=== PATIENT | female | born 1995 | race Caucasian/White ===

== ENCOUNTER 2016-05-31 09:40 | Day surgery (SDC) | payer BC, OTHER ==
[2016-05-30 15:12] VITALS: BMI 17.6
[~2016-05-31 09:40] MED LIST: DEXAMETHASONE SOD PHOSPHATE 10 MG/ML 1 ML VIAL IV ONE; HYDROmorphone 1 MG/ML 1 ML SYRINGE IVP PRN; LACTATED RINGERS 1,000 ML IV SCH; MIDAZOLAM 2 MG/2 ML VIAL IV PRN; ONDANSETRON 4 MG/2 ML VIAL IVP ONE; SCOPOLAMINE 1.5MG/72HR PATCH TRANSDERM ONE
[2016-05-31 10:30] VITALS: TEMP 98.2
[2016-05-31] MEDS ORDERED: LIDOCAINE 1% 20 ML VIAL (10MG/ML) FOR IV START INTRADERMA ONE (10:43)
--- NOTE | 2016-05-31 11:37 | P.GSHP ---
History of Present Illness H&P Date: 05/31/16 Chief Complaint: Lymphoma Patient here today for Port-A-Cath insertion. The patient has a recent diagnosis of Hodgkin's lymphoma. She has not had a port in the past. She started her initial treatment with a PICC line. Past Medical History Past Medical History: Cancer, Pneumonia Additional Past Medical History / Comment(s): HODGKINS LYMPHOMA (DX-04/2016), HOSPITALIZED FOR PNEUMONIA AND PERICARDIAL EFFUSION. , STATES SHE RECEIVED 1ST CHEMO 05/22/16. History of Any Multi-Drug Resistant Organisms: None Reported Past Surgical History: No Surgical Hx Reported Additional Past Surgical History / Comment(s): LEFT AXILLARY NODE BX, PERICARDIOCENTESIS, BONE MARROW BX (05/17/16)., PICC LINE (05/21/16 AND NOW REMOVED) Past Anesthesia/Blood Transfusion Reactions: Motion Sickness, Postoperative Nausea & Vomiting (PONV) Past Psychological History: No Psychological Hx Reported Smoking Status: Never smoker Past Alcohol Use History: None Reported Past Drug Use History: None Reported - Past Family History Mother Family Medical History: No Reported History Additional Family Medical History / Comment(s): 2 grandparents with cancer Father Family Medical History: No Reported History Brother(s) Family Medical History: No Reported History Daughter(s) Family Medical History: No Reported History Son(s) Family Medical History: No Reported History Medications and Allergies Home Medications Medication Instructions Recorded Confirmed Type Allopurinol [Zyloprim] 300 mg PO DAILY 05/16/16 05/31/16 History Prochlorperazine [Compazine] 10 mg PO Q8H PRN 05/30/16 05/31/16 History Allergies Allergy/AdvReac Type Severity Reaction Status Date / Time No Known Allergies Allergy Verified 05/31/16 10:28 Surgical - Exam Vital Signs Temp Pulse Resp BP Pulse Ox 98.2 F 69 16 103/67 100 05/31/16 10:29 05/31/16 10:29 05/31/16 10:29 05/31/16 10:29 05/31/16 10:29 Physical exam: General: Well-developed, well-nourished HEENT: Normocephalic, sclerae nonicteric, adenopathy improved Abdomen: Nontender, nondistended Extremities: No edema Neuro: Alert and oriented Assessment and Plan (1) Hodgkins disease Narrative/Plan: Will proceed with Port-A-Cath placement today. The risks of bleeding, infection , catheter breakage, catheter malfunction, pneumothorax, DVT were discussed. She understands and wishes to proceed. Status: Acute
[2016-05-31] MEDS ORDERED: SODIUM CHLORIDE 0.9% 100 ML BAG ONE (12:56)
[2016-05-31] MEDS ORDERED: fentaNYL (PF) 50 MCG/ML 2 ML AMP ONE (12:56)
[2016-05-31] MEDS ORDERED: ceFAZolin 1,000 MG VIAL ONE (12:56)
[2016-05-31] MEDS ORDERED: MIDAZOLAM 2 MG/2 ML VIAL ONE (12:56)
[2016-05-31] MEDS ORDERED: PROPOFOL 10 MG/ML 20 ML VIAL IV ONE (12:56)
[2016-05-31] MEDS: ceFAZolin 2 GM in SODIUM CHLORIDE 0.9% 100 ML IVPB ONE ×2 (13:02→13:05)
[2016-05-31] MEDS ORDERED: LIDOCAINE 1% INJ 10MG/ML (20 ML MDV) SQ ONE ×2 (13:14)
[2016-05-31] MEDS ORDERED: NALOXONE 0.4 MG/ML 1 ML VIAL IV PRN (13:49)
--- NOTE | 2016-05-31 13:54 | FL ---
EXAMINATION TYPE: FL guidance operating room DATE OF EXAM: 05/31/2016 1:50 PM HISTORY: Flouroscopy time 1 minute and 38 seconds of fluoroscopy provided. IMPRESSION: 1. Fluoroscopy time.
[2016-05-31 14:10] VITALS: RESP 16
--- NOTE | 2016-05-31 14:19 | XR ---
EXAMINATION TYPE: XR chest 1V portable DATE OF EXAM: 05/31/2016 2:05 PM COMPARISON: NONE HISTORY: Post line attempt TECHNIQUE: Single frontal view of the chest is obtained. FINDINGS: Findings are suspicious for a less than 5% left apical pneumothorax. Mediastinum remains markedly wid ened with evidence of suspected mass or adenopathy. There is no focal air space opacity, pleural or pleural effusion seen. The cardiac silhouette size i s within normal limits. The osseous structures are intact. IMPRESSION: 1. Findings suspicious for less than 5% left apical pneumothorax.
[2016-05-31 14:51] VITALS: BP 96/62; PULSE 74
--- NOTE | 2016-05-31 15:14 | XR ---
EXAMINATION TYPE: XR chest 1V portable DATE OF EXAM: 05/31/2016 3:09 PM COMPARISON: 05/31/2016 HISTORY: Questionable left pneumothorax post line attempt TECHNIQUE: Single frontal view of the chest is obtained. FINDINGS: There is no focal air space opacity, pleural effusion, or pneumothorax seen. The cardiac silhouette size is within normal limits. The osseous structures are intact. Marked mediastinal wide taylor suggestive of adenopathy or mass. IMPRESSION: 1. No sizable pneumothorax.
--- NOTE | 2016-06-06 19:11 | P.PCN ---
Date of Procedure: 06/06/16 Procedure(s) Performed: PREOPERATIVE DIAGNOSIS: Lymphoma POSTOPERATIVE DIAGNOSIS: Lymphoma with occlusion proximal great vessels PROCEDURE: Attempted bilateral Port-A-Cath placement SURGEON: Suzy EBL: Minimal ANESTHESIA: Sedation COMPLICATIONS: Unable to place catheter OPERATIVE PROCEDURE: Patient was brought and placed on the operative table in the supine position. The patient was sedated per anesthesia that time. The chest and neck were prepped and draped in usual sterile fashion. The ultrasound probe was used to identify the location of the right internal jugular vein. The skin was localized with lidocaine. The luminal diameter of the right IJ was very small. I was able to cannulate however under ultrasound guidance of the wire would only advance 2-3 inches before meeting an obstruction. I then attempted the left IJ. Again the luminal diameter was quite small. This time I was able to advance the guidewire into the region of the superior vena cava but met resistance at that point. I decided to abort the procedure at that point. The patient will require PICC line or femoral catheter placement. This was discussed with oncologist. sterile dressings then applied. DISPOSITION: Stable to recovery room
== END 2016-05-31 15:25 | disposition home or self-care (01) ==
LOC: OR 09:40
PROVIDERS: ATTEND Surgery
DX: C81.90 Hodgkin lymphoma, unspecified, unspecified site (principal); Z45.2 Encounter for adjustment and management of vascular access device; Z53.8 Procedure and treatment not carried out for other reasons; Z79.899 Other long term (current) drug therapy
CPT/HCPCS: 81025; 71010; 36561; 77001; 76937; J2250; J2405; J0690; J2001; J3010; J2704; 99152; 99153

== ENCOUNTER 2016-06-04 11:55 | Day surgery (SDC) | payer BC, OTHER ==
[2016-06-03 09:44] VITALS: BMI 17.6
[2016-06-04 12:55] VITALS: BP 105/59; PULSE 76; RESP 18; TEMP 98
[2016-06-04] MEDS ORDERED: LIDOCAINE 2% INJ 20 MG/ML SQ ONE ×2 (13:14→13:22)
[2016-06-04] MEDS ORDERED: IODIXANOL 320 MG/ML 100 ML IV ONE (13:28)
--- NOTE | 2016-06-05 15:21 | IR ---
EXAMINATION TYPE: IR venogram upper ext RT DATE OF EXAM: 06/04/2016 1:51 PM COMPARISON: NONE HISTORY: Failed central line placement request for PICC line placement. Patient with history of lymph katey and massive mediastinal adenopathy. The procedure was discussed with the patient. The risks, complications, benefits, and alternatives we re discussed and any questions were answered. Informed consent was obtained. The patient was placed s upine on the fluoroscopic table and prepped and draped in the usual sterile fashion. All elements of maximal barrier technique were utilized. Under ultrasound guidance, access into the left basilic vein and subsequently right basilic vein was achieved. Within both upper extremities the guidewire would not pass beyond the subclavian vein. Injection of contrast was performed which demon strated occlusion centrally with no contrast seen to spill into the central venous system. Case was d iscussed with referring physician and PICC line was deferred. The patient was stable throughout the p rocedure and remained stable upon discharge from Department of Radiology. IMPRESSION: A due to the massive mediastinal adenopathy guidewire could not cross the subclavian vein bilaterally . Venogram demonstrated no passage of contrast into the vena cava.
== END 2016-06-04 14:08 | disposition home or self-care (01) ==
LOC: CATHCVL 11:55
PROVIDERS: ATTEND Radiology Diagnostic Radiology
DX: C81.18 Nodular sclerosis Hodgkin lymphoma, lymph nodes of multiple sites (principal); R59.0 Localized enlarged lymph nodes; I87.2 Venous insufficiency (chronic) (peripheral); Z79.899 Other long term (current) drug therapy
CPT/HCPCS: 36569; 81025; J2001; Q9967; 76937; 77001

== ENCOUNTER → 2016-07-06 | Outpatient (CLI) | payer BC ==
--- NOTE | 2016-07-07 11:02 | PE ---
EXAMINATION TYPE: PET CT fusion skull to thigh DATE OF EXAM: 07/06/2016 12:19 PM COMPARISON: 05/25/2016 HISTORY: Lymphoma TECHNIQUE: Following the intravenous administration of 15.3 mCi of F-18 FDG, whole body images are p erformed from the skull base to the midthigh. Images are reviewed on the computer in the coronal, ax ial, and sagittal planes. Reconstructed rotating images are created on independent workstation and r eviewed on the computer. A localization and attenuation correction CT is performed in conjunction w ith the PET scan. DLP: 220.46 mGycm SCAN: Subsequent Scan Blood glucose: 84 mg/dL Average Mediastinum SUV: 1.0 Average Liver SUV: 1.3 FINDINGS: NECK: Multiple bilateral focal areas of increased uptake are present. These have diminished in numbe r over the interval. THORAX: Suspicious uptake not identified ABDOMEN AND PELVIS: Suspicious uptake not identified OSSEOUS STRUCTURES: There is increased signal throughout the osseous structures. Especially noted thr ough the sternoclavicular junction, vertebral bodies, sternum LOCALIZATION CT: Note is made of a small pericardial effusion. Superior mediastinal adenopathy appear s to be present which is not radiointensity PET/CT. Intense activity is through the pelvis and segmen tally within the femurs. COMPARISON: There is been significant improvement within the uptake from the prior examination. Appea rs to be radiotracer resolution of multiple lymph nodes within the neck mediastinum right axillary re gion. Note is made however of continued soft tissue density especially no through the superior medias tinum. However, abnormal uptake is not identified. IMPRESSION: 1. Significant improvement of uptake with multiple areas of diminished radiotracer accumulation withi n lymph node chains. 2. There is increasing uptake within osseous structures can be related to the patient's treatment. 3. Pericardial effusion
== END | disposition home or self-care (01) ==
LOC: RADPETMAIN 08:22
PROVIDERS: ATTEND Internal Medicine Hematology & Oncology
DX: C85.90 Non-Hodgkin lymphoma, unspecified, unspecified site (principal); I31.3 Pericardial effusion (noninflammatory)
CPT/HCPCS: 78815; A9552

== ENCOUNTER → 2016-09-10 | Outpatient (CLI) | payer BC ==
--- NOTE | 2016-09-11 10:48 | ECHOF ---
Referral Reason:C81.18 lymphoma Z68.18 chemo MEASUREMENTS -------- HEIGHT: 165.1 cm WEIGHT: 51.7 kg BP: RVIDd: 1.9 cm (< 3.3) IVSd: 0.8 cm (0.6 - 1.1) LVIDd: 4.5 cm (3.9 - 5.3) LVPWd: 0.7 cm (0.6 - 1.1) IVSs: 1.1 cm LVIDs: 3.2 cm LVPWs: 1.0 cm LA Diam: 1.8 cm (2.7 - 3.8) Ao Diam: 2.6 cm (2.0 - 3.7) AV Cusp: 1.6 cm (1.5 - 2.6) LA Diam: 2.3 cm (2.7 - 3.8) MV EXCURSION: 17.657 mm (> 18.000) MV EF SLOPE: 135 mm/s (70 - 150) EPSS: 0.6 cm MV E Justen: 0.87 m/s MV DecT: 240 ms MV A Justen: 0.46 m/s MV E/A Ratio: 1.87 RAP: 5.00 mmHg RVSP: 14.95 mmHg FINDINGS -------- Sinus rhythm. This was a technically good study. Left ventricular wall thickness is normal. Overall left ventricular systolic function is mild-moderately impaired with, an EF between 40 - 45 %. Inferior Hypokinesis The right ventricle is normal in size. The left atrial size is normal. The right atrial size is normal. The aortic valve is trileaflet, and appears structurally normal. No aortic stenosis or regurgitation. The mitral valve leaflets are mildly thickened. Mild mitral regurgitation is present. Mild tricuspid regurgitation present. There is no evidence of pulmonary hypertension. The right ventricular systolic pressure, as measured by Doppler, is 14.95mmHg. There is no pulmonic regurgitation present. There is a small, generalized pericardial effusion present. CONCLUSIONS -------- 1. Left ventricular wall thickness is normal. 2. Overall left ventricular systolic function is mild-moderately impaired with, an EF between 40 - 45 %. 3. Inferior Hypokinesis 4. The mitral valve leaflets are mildly thickened. 5. Mild mitral regurgitation is present. 6. Mild tricuspid regurgitation present. 7. There is no evidence of pulmonary hypertension. 8. The right ventricular systolic pressure, as measured by Doppler, is 14.95mmHg. 9. There is a small, generalized pericardial effusion present. GED PREPARATION TEACHER: Gisela Geronimo RDCS
== END | disposition home or self-care (01) ==
LOC: RADECHMAIN 13:43
PROVIDERS: ATTEND Internal Medicine Hematology & Oncology
DX: C85.90 Non-Hodgkin lymphoma, unspecified, unspecified site (principal); I08.1 Rheumatic disorders of both mitral and tricuspid valves; I31.3 Pericardial effusion (noninflammatory)
CPT/HCPCS: 93306; 94060; 94726; 94729

== ENCOUNTER → 2016-09-17 | Outpatient (CLI) | payer BC ==
--- NOTE | 2016-09-17 14:37 | NM ---
EXAMINATION TYPE: NM rest muga chemo DATE OF EXAM: 09/17/2016 2:13 PM COMPARISON: NONE HISTORY: Z79.88 exposure to chemo Following administration of 3ml PYP 25.6 mCi Tc 99m Sodium Pertechnete. Images minutes post injection . FINDINGS: There is good myocardial wall thickening. Ejection fraction 62.8% IMPRESSION: Normal right and left ventricular chamber sizes. Normal right and left ventricular segmental wall mot ion.
== END ==
LOC: RADNMMAIN 12:48
PROVIDERS: ATTEND Internal Medicine Hematology & Oncology
DX: C81.18 Nodular sclerosis Hodgkin lymphoma, lymph nodes of multiple sites (principal); Z03.89 Encounter for observation for other suspected diseases and conditions ruled out
CPT/HCPCS: 78472; A9560

== ENCOUNTER → 2016-12-28 | Outpatient (CLI) | payer BC, OTHER ==
--- NOTE | 2016-12-28 17:01 | PE ---
EXAMINATION TYPE: PET CT fusion skull to thigh DATE OF EXAM: 12/28/2016 COMPARISON: PET/CT July 06, 2016. Older PET/CT May 25, 2016 HISTORY: Lymphoma progress study initially diagnosed left axilla May 02, 2016 completed chemother apy November 07, 2016. TECHNIQUE: Following the intravenous administration of 12.82 mCi of F-18 FDG, whole body images are performed from the skull base to the midthigh. Images are reviewed on the computer in the coronal, a xial, and sagittal planes. Reconstructed rotating images are created on independent workstation and reviewed on the computer. A localization and attenuation correction CT is performed in conjunction with the PET scan. SCAN: Subsequent Scan FINDINGS: SKULL BASE AND NECK: Symmetric increase uptake at level of the tongue could reflect tonsillar hyperp lasia or inflammation. Uptake diffusely surrounding mandibular symphysis is of uncertain etiology. Sy mmetric uptake at level of vocal cords is felt to reflect product of phonation. There is some increas e uptake left paraspinal muscles in which inflammatory process cannot be excluded. No suspicious new hypermetabolic uptake is seen to suggest neoplasm. CHEST, MEDIASTINUM, AND HILAR REGION: No suspicious hypermetabolic uptake is seen to suggest new will opathy. There is persistent prominent right axillary lymph node measuring 1.7 x 1.0 cm on axial image 59 not significantly changed from prior without abnormal hypermetabolic uptake. There is prominent s oft tissue anterior superior mediastinum felt to reflect thymic rebound without abnormal hypermetabol ic uptake redemonstrated. ABDOMEN AND PELVIS: No suspicious hypermetabolic uptake in the abdomen or pelvis is seen. Nonspecific uptake in the pelvis along uterine margin is noted. OSSEOUS STRUCTURES: No suspicious uptake is identified currently. Diffuse uptake presumed posttreatme nt change from prior study is improved. OTHER CT: There is small pericardial effusion diminished in size from prior. Uterus is heterogeneous in appearance and prominent in size slightly retroverted in shape similar to prior. There is interval removal of right groin venous catheter. IMPRESSION: No evidence of suspicious hypermetabolic enlarged lymph nodes to suggest neoplastic recur rence on current study.
== END | disposition home or self-care (01) ==
LOC: RADPETMAIN 11:34
PROVIDERS: ATTEND Internal Medicine Hematology & Oncology
DX: C81.18 Nodular sclerosis Hodgkin lymphoma, lymph nodes of multiple sites (principal)
CPT/HCPCS: 78815; A9552

== ENCOUNTER → 2017-10-15 | Outpatient (CLI) | payer OTHER ==
--- NOTE | 2017-10-15 16:54 | XR ---
EXAMINATION TYPE: XR chest 2V DATE OF EXAM: 10/15/2017 COMPARISON: 05/31/2016 HISTORY: Chest pain TECHNIQUE: Frontal and lateral views of the chest are obtained. FINDINGS: Heart is normal. There is slight widening of the superior mediastinum consistent with mild adenopathy.. Lungs are clear. Diaphragm is normal. Bony thorax is intact. IMPRESSION: There is significant decrease in the mediastinal adenopathy compared to old exam. Normal heart.
== END | disposition home or self-care (01) ==
LOC: RADXRMAIN 16:32
PROVIDERS: ATTEND Nurse Practitioner Adult Health
DX: C81.18 Nodular sclerosis Hodgkin lymphoma, lymph nodes of multiple sites (principal)
CPT/HCPCS: 71046

== ENCOUNTER 2017-10-16 20:31 | Inpatient (IN) | payer OTHER ==
[2017-10-16] MEDS ORDERED: SODIUM CHLORIDE 0.9% 1,000 ML IV STA (20:48)
[2017-10-16] MEDS ORDERED: RX INFO: IV CONTRAST WAS GIVEN 1 EACH MISC MISCELLANE PRN (20:49)
[2017-10-16] MEDS ORDERED: methylPREDNISolone SOD SUCCI 125 MG/2 ML VIAL IV STA (20:50)
--- NOTE | 2017-10-16 21:02 | ED ---
General Adult HPI - General Chief complaint: ENT Stated complaint: Throat Problems Time Seen by Provider: 10/16/17 20:38 Source: patient, RN notes reviewed Mode of arrival: ambulatory Limitations: no limitations - History of Present Illness Initial comments: Patient 22-year-old female who presents emergency room today with a chief complaint of chest pain and sensation of neck swelling 2 days. Patient does admit that she has been expressing some pain in her chest. She admits that she' s had some sensations of shortness of breath with exertion over the last few weeks. She does admit that pain just began just 2 days ago. She admits to history of non-Hodgkin's lymphoma currently in remission. She did follow through oncologist the other day had EKG and chest x-ray with labs obtained. She is scheduled for a echocardiogram next week. She states over the last 2 days she's had this chest pain also feeling of neck swelling. She states no visible swelling but feels some tightness. She denies ever having similar symptoms in the past. She denies any recent travel. Denies any leg swelling or cramping in legs. She does admit to control. Patient admits that she' s been feeling somewhat lightheaded and dizzy at times. Patient denies any recent fever, chills, back pain, abdominal pain, nausea or vomiting, numbness or tingling, dysuria or hematuria, constipation or diarrhea, headaches or visual changes, or any other complaints. - Related Data Home Medications Medication Instructions Recorded Confirmed Jackson-Linyah 1 tab PO DAILY 10/16/17 10/16/17 Allergies Allergy/AdvReac Type Severity Reaction Status Date / Time No Known Allergies Allergy Verified 10/16/17 20:40 Review of Systems ROS Statement: Those systems with pertinent positive or pertinent negative responses have been documented in the HPI. ROS Other: All systems not noted in ROS Statement are negative. Past Medical History Past Medical History: No Reported History Additional Past Medical History / Comment(s): Hodgkin's lymphoma, please refer to the details in terms of the CAT scan of the chest abdomen and pelvis History of Any Multi-Drug Resistant Organisms: None Reported Past Surgical History: No Surgical Hx Reported Additional Past Surgical History / Comment(s): LEFT AXILLARY NODE BX Past Anesthesia/Blood Transfusion Reactions: No Reported Reaction Past Psychological History: No Psychological Hx Reported Smoking Status: Former smoker Past Alcohol Use History: None Reported Past Drug Use History: None Reported - Past Family History Mother Family Medical History: No Reported History Additional Family Medical History / Comment(s): 2 grandparents with cancer Father Family Medical History: No Reported History Brother(s) Family Medical History: No Reported History Daughter(s) Family Medical History: No Reported History Son(s) Family Medical History: No Reported History General Exam - General Exam Comments Initial Comments: General: The patient is awake and alert, in no distress, and does not appear acutely ill. Eye: Pupils are equal, round and reactive to light, extra-ocular movements are intact. No nystagmus. There is normal conjunctiva bilaterally. No signs of icterus. Ears, nose, mouth and throat: There are moist mucous membranes and no oral lesions. Neck: The neck is supple, there is no tenderness or JVD. Cardiovascular: There is a regular rate and rhythm. No murmur, rub or gallop is appreciated. Respiratory: Lungs are clear to auscultation, respirations are non-labored, breath sounds are equal. No wheezes, stridor, rales, or rhonchi. Musculoskeletal: Normal ROM, no tenderness. Strength 5/5. Sensation intact. Pulses equal bilaterally 2+. Neurological: A&O x 3. CN II-XII intact, There are no obvious motor or sensory deficits. Coordination appears grossly intact. Speech is normal. Skin: Skin is warm and dry and no rashes or lesions are noted. Psychiatric: Cooperative, appropriate mood & affect, normal judgment. Limitations: no limitations Course Vital Signs 10/16/17 10/16/17 20:34 20:47 Temperature 99.4 F Pulse Rate 110 H Respiratory 18 18 Rate Blood Pressure 137/90 O2 Sat by Pulse 98 Oximetry EKG Findings - EKG Comments: EKG Findings:: EKG performed at 2053: Shows sinus tachycardia 106 bpm UT interval 128. QRS 82. QT/QTC 340/451. No acute ST changes. Medical Decision Making - Medical Decision Making Patient's CT of the neck is been reviewed and shows no evidence of pharyngeal mass. There is mediastinal adenopathy and cervical adenopathy which is significantly less from an old computed tomography scan 2016. There is significant narrowing of the proximal left subclavian vein seen on CT of the neck. CT of the chest doesn't reveal no evidence of PE but shows an almost complete occlusion of the proximal left subclavian vein in the superior mediastinum. Case was discussed with attending physician Dr. Faria who did discuss with vascular surgeon Dr. Lou who recommends anticoagulation and states that he will see the patient in the morning. Patient will be admitted to medicine with consults to vascular surgeon and patient's oncologist Dr. Brooke - Lab Data Result diagrams: 10/16/17 21:10 10/16/17 21:10 Lab Results 10/16/17 10/16/17 10/16/17 Range/Units 21:10 21:10 21:10 WBC 5.4 (3.8-10.6) k/uL RBC 4.52 (3.80-5.40) m/uL Hgb 13.5 (11.4-16.0) gm/dL Hct 39.9 (34.0-46.0) % MCV 88.1 (80.0-100.0) fL MCH 29.9 (25.0-35.0) pg MCHC 33.9 (31.0-37.0) g/dL RDW 13.0 (11.5-15.5) % Plt Count 167 (150-450) k/uL Neutrophils % 61 % Lymphocytes % 31 % Monocytes % 5 % Eosinophils % 2 % Basophils % 1 % Neutrophils # 3.3 (1.3-7.7) k/uL Lymphocytes # 1.7 (1.0-4.8) k/uL Monocytes # 0.3 (0-1.0) k/uL Eosinophils # 0.1 (0-0.7) k/uL Basophils # 0.0 (0-0.2) k/uL PT (9.0-12.0) sec INR (<1.2) APTT (22.0-30.0) sec Sodium 141 (137-145) mmol/L Potassium 3.4 L (3.5-5.1) mmol/L Chloride 101 (98-107) mmol/L Carbon Dioxide 23 (22-30) mmol/L Anion Gap 17 mmol/L BUN 10 (7-17) mg/dL Creatinine 0.71 (0.52-1.04) mg/dL Est GFR (CKD-EPI)AfAm >90 (>60 ml/min/1.73 sqM) Est GFR (CKD-EPI)NonAf >90 (>60 ml/min/1.73 sqM) Glucose 112 H (74-99) mg/dL Calcium 9.0 (8.4-10.2) mg/dL Total Bilirubin 0.7 (0.2-1.3) mg/dL AST 20 (14-36) U/L ALT 27 (9-52) U/L Alkaline Phosphatase 44 (38-126) U/L Total Creatine Kinase 62 (30-135) U/L CK-MB (CK-2) <0.2 (0.0-2.4) ng/mL CK-MB (CK-2) Rel Index Troponin I <0.012 (0.000-0.034) ng/mL Total Protein 7.2 (6.3-8.2) g/dL Albumin 4.5 (3.5-5.0) g/dL Urine Color Urine Appearance (Clear) Urine pH (5.0-8.0) Ur Specific Mcgraws (1.001-1.035) Urine Protein (Negative) Urine Glucose (UA) (Negative) Urine Ketones (Negative) Urine Blood (Negative) Urine Nitrite (Negative) Urine Bilirubin (Negative) Urine Urobilinogen (<2.0) mg/dL Ur Leukocyte Esterase (Negative) Urine RBC (0-5) /hpf Urine WBC (0-5) /hpf Ur Squamous Epith Cells (0-4) /hpf Urine Bacteria (None) /hpf Urine Mucus (None) /hpf Urine HCG, Qual (Not Detectd) 10/16/17 10/16/17 10/16/17 Range/Units 21:10 21:10 21:10 WBC (3.8-10.6) k/uL RBC (3.80-5.40) m/uL Hgb (11.4-16.0) gm/dL Hct (34.0-46.0) % MCV (80.0-100.0) fL MCH (25.0-35.0) pg MCHC (31.0-37.0) g/dL RDW (11.5-15.5) % Plt Count (150-450) k/uL Neutrophils % % Lymphocytes % % Monocytes % % Eosinophils % % Basophils % % Neutrophils # (1.3-7.7) k/uL Lymphocytes # (1.0-4.8) k/uL Monocytes # (0-1.0) k/uL Eosinophils # (0-0.7) k/uL Basophils # (0-0.2) k/uL PT 10.2 (9.0-12.0) sec INR 1.0 (<1.2) APTT 23.3 (22.0-30.0) sec Sodium (137-145) mmol/L Potassium (3.5-5.1) mmol/L Chloride (98-107) mmol/L Carbon Dioxide (22-30) mmol/L Anion Gap mmol/L BUN (7-17) mg/dL Creatinine (0.52-1.04) mg/dL Est GFR (CKD-EPI)AfAm (>60 ml/min/1.73 sqM) Est GFR (CKD-EPI)NonAf (>60 ml/min/1.73 sqM) Glucose (74-99) mg/dL Calcium (8.4-10.2) mg/dL Total Bilirubin (0.2-1.3) mg/dL AST (14-36) U/L ALT (9-52) U/L Alkaline Phosphatase (38-126) U/L Total Creatine Kinase (30-135) U/L CK-MB (CK-2) (0.0-2.4) ng/mL CK-MB (CK-2) Rel Index Troponin I (0.000-0.034) ng/mL Total Protein (6.3-8.2) g/dL Albumin (3.5-5.0) g/dL Urine Color Light Yellow Urine Appearance Cloudy H (Clear) Urine pH 6.0 (5.0-8.0) Ur Specific Mcgraws 1.005 (1.001-1.035) Urine Protein Negative (Negative) Urine Glucose (UA) Negative (Negative) Urine Ketones Negative (Negative) Urine Blood Negative (Negative) Urine Nitrite Negative (Negative) Urine Bilirubin Negative (Negative) Urine Urobilinogen <2.0 (<2.0) mg/dL Ur Leukocyte Esterase Moderate H (Negative) Urine RBC 1 (0-5) /hpf Urine WBC 5 (0-5) /hpf Ur Squamous Epith Cells 6 H (0-4) /hpf Urine Bacteria Occasional H (None) /hpf Urine Mucus Rare H (None) /hpf Urine HCG, Qual Not Detected (Not Detectd) Disposition Clinical Impression: Subclavian vein occlusion Disposition: ADMITTED IP TO THIS HOSP Condition: Stable Is patient prescribed a controlled substance at d/c from ED?: No Referrals: Domenico Brooke MD [Primary Care Provider] - 1-2 days Time of Disposition: 22:39
[2017-10-16 21:19] LABS: Basophils % (A) 1 %; Eosinophils # (A) 0.1 k/uL (0-0.7); Eosinophils % (A) 2 %; HCT 39.9 % (34.0-46.0); HGB 13.5 gm/dL (11.4-16.0); Lymphocytes # (A) 1.7 k/uL (1.0-4.8); Lymphocytes % (A) 31 %; MCH 29.9 pg (25.0-35.0); MCHC 33.9 g/dL (31.0-37.0); MCV 88.1 fL (80.0-100.0); Mean Platelet Volume 8.1; Monocytes # (A) 0.3 k/uL (0-1.0); Monocytes % (A) 5 %; Neutrophils # (A) 3.3 k/uL (1.3-7.7); Neutrophils % (A) 61 %; Platelet Count 167 k/uL (150-450); RBC 4.52 m/uL (3.80-5.40); WBC 5.4 k/uL (3.8-10.6)
[2017-10-16 21:28] LABS: ALT 27 U/L (9-52); AST 20 U/L (14-36); Albumin 4.5 g/dL (3.5-5.0); Alkaline Phosphatase 44 U/L (38-126); Anion Gap 17 mmol/L; Blood Urea Nitrogen 10 mg/dL (7-17); Carbon Dioxide 23 mmol/L (22-30); Chloride 101 mmol/L (98-107); Glucose 112 mg/dL (74-99); Potassium 3.4 mmol/L (3.5-5.1); Sodium 141 mmol/L (137-145); Total Bilirubin 0.7 mg/dL (0.2-1.3); Total Protein 7.2 g/dL (6.3-8.2)
[2017-10-16 21:31] LABS: Creatine Kinase 62 U/L (30-135)
[2017-10-16 21:33] LABS: Appearance,Urine Cloudy (Clear); Bacteria,Urine Occasional /hpf; Bilirubin,Urine Negative (Negative); Blood,Urine Negative (Negative); Color,Urine Light Yellow; Glucose,Urine (UA) Negative (Negative); Ketones,Urine Negative (Negative); Leukocyte Esterase,Urine Moderate (Negative); Mucus,Urine Rare /hpf; Nitrite,Urine Negative (Negative); Protein,Urine Negative (Negative); RBC,Urine 1 /hpf (0-5); Specific Gravity,Urine 1.005 (1.001-1.035); Squamous Epithelial Cell,Urine 6 /hpf (0-4); Urobilinogen,Urine <2.0 mg/dL (<2.0); WBC,Urine 5 /hpf (0-5)
[2017-10-16 21:44] LABS: Creatine Kinase MB <0.2 ng/mL (0.0-2.4); Troponin I <0.012 ng/mL (0.000-0.034)
[2017-10-16 21:47] LABS: Partial Thromboplastin Time 23.3 sec (22.0-30.0); Prothrombin Time 10.2 sec (9.0-12.0)
--- NOTE | 2017-10-16 22:12 | CT ---
EXAMINATION TYPE: CT angio chest DATE OF EXAM: 10/16/2017 9:58 PM COMPARISON: NONE HISTORY: Mid chest pain and difficulty breathing x 3 days. Neck feels swollen. History of Hodgkins ly mphoma. CT DLP: 114.5 mGycm Automated exposure control for dose reduction was used. CONTRAST: CTA scan of the thorax is performed with IV Contrast, patient injected with 100 mL of Isovue 370, pul monary embolism protocol. There are 3-D post processed images.. FINDINGS: The lungs are clear of infiltrate. There is no pleural effusion. There is no evidence of a pulmonary mass. There is some increased paratracheal density consistent with mediastinal adenopathy. There is 2 .6 x 1 cm anterior mediastinal lymph node. There are no filling defects in the pulmonary arteries. Th e bony thorax is intact. Thoracic aorta appears normal. The contrast reaches the heart through the azygos vein. There is no si gnificant flow in the left subclavian vein in the superior mediastinum. IMPRESSION: NO EVIDENCE OF PULMONARY EMBOLISM. THERE IS ALMOST COMPLETE OCCLUSION OF THE PROXIMAL LEFT SUBCLAVIAN VEIN IN THE SUPERIOR MEDIASTINUM. There is much improvement in the mediastinal adenopathy compared t o old CT scan of 05/02/2016.
--- NOTE | 2017-10-16 22:16 | CT ---
EXAMINATION TYPE: CT soft tissue neck w con DATE OF EXAM: 10/16/2017 9:59 PM COMPARISON: NONE HISTORY: Mid chest pain and difficulty breathing x 3 days. Neck feels swollen. History of Hodgkins ly mphoma. CT DLP: 301.5 mGycm Automated exposure control for dose reduction was used. CONTRAST: CT scan of the neck is performed following with IV Contrast, patient injected with mL of Isovue 370. Axial images are obtained, coronal and sagittal reformatted images are reviewed. FINDINGS: There is some anterior and paratracheal lymphadenopathy with anterior mediastinal lymph node measures 3 x 1 cm. There is normal branching pattern of the great vessels on the aortic arch. There is a very small left subclavian vein in the superior mediastinum which is almost occluded. There is normal con trast opacification of carotid arteries and jugular veins. The left jugular vein drains mostly into t he azygos vein on the left side. Thyroid gland appears normal. Trachea appears normal. There are mult iple bilateral anterior and posterior triangle cervical lymph nodes that measure mostly less than 1 c m. The epiglottis is normal. Tonsils and adenoids appear normal. There is no evidence of pharyngeal m ass. Cervical spine appears normal. IMPRESSION: Mild mediastinal adenopathy. Mild cervical adenopathy. Adenopathy is significantly less than old CT scan of 2016. No significant abnormality of the airway. Significant narrowing of the prox imal left subclavian vein.
[2017-10-16] MEDS ORDERED: HEPARIN SODIUM,PORCINE 5,000 UNIT/ML 1 ML VIAL IV STA (22:36)
[2017-10-16] MEDS ORDERED: ACETAMINOPHEN TAB 325 MG TAB PO PRN (22:39)
[2017-10-16] MEDS ORDERED: MORPHINE SULFATE 4 MG/ML SYRINGE IV PRN (22:39)
[2017-10-16] MEDS ORDERED: NALOXONE 0.4 MG/ML 1 ML VIAL IV PRN (22:39)
[2017-10-16] MEDS ORDERED: ONDANSETRON 4 MG/2 ML VIAL IVP PRN (22:39)
[2017-10-16] MEDS ORDERED: SODIUM CHLORIDE 0.9% 1,000 ML IV ONE (22:39)
[2017-10-16] MEDS ORDERED: HEPARIN SODIUM,PORCINE/D5W PMX 25,000 UNIT in DEXTROSE/WATER 1 500ML.BAG IV SCH (23:00)
[2017-10-16 23:42] VITALS: RESP 16
[2017-10-17 00:12] VITALS: BMI 19.4
[2017-10-17] MEDS: HYDROcodone/APAP 5-325MG 1 EACH TAB PO PRN ×3 (01:47→14:04)
[2017-10-17 05:22] LABS: Basophils % (A) 0 %; Eosinophils % (A) 0 %; HGB 13.9 gm/dL (11.4-16.0); Lymphocytes # (A) 0.7 k/uL (1.0-4.8); Lymphocytes % (A) 17 %; MCH 29.7 pg (25.0-35.0); MCV 89.9 fL (80.0-100.0); Mean Platelet Volume 7.8; Monocytes % (A) 1 %; Neutrophils # (A) 3.2 k/uL (1.3-7.7); Neutrophils % (A) 81 %; Platelet Count 182 k/uL (150-450); RBC 4.67 m/uL (3.80-5.40); RDW 12.7 % (11.5-15.5); WBC 3.9 k/uL (3.8-10.6)
[2017-10-17 05:34] LABS: ALT 30 U/L (9-52); AST 18 U/L (14-36); Albumin 4.3 g/dL (3.5-5.0); Alkaline Phosphatase 42 U/L (38-126); Anion Gap 14 mmol/L; Blood Urea Nitrogen 7 mg/dL (7-17); Carbon Dioxide 20 mmol/L (22-30); Chloride 106 mmol/L (98-107); Glucose 147 mg/dL (74-99); Potassium 4.2 mmol/L (3.5-5.1); Sodium 140 mmol/L (137-145); Total Bilirubin 0.6 mg/dL (0.2-1.3); Total Protein 6.9 g/dL (6.3-8.2)
[2017-10-17] MEDS ORDERED: HEPARIN SODIUM,PORCINE 5,000 UNIT/ML 1 ML VIAL IV PRN ×2 (05:38→05:41)
[2017-10-17 11:59] LABS: Uric Acid 4.7 mg/dL (3.7-7.4)
--- NOTE | 2017-10-17 13:24 | ECHOF ---
Referral Reason:hx mid ef impairment and anthracycline chemotherap MEASUREMENTS -------- HEIGHT: 165.1 cm WEIGHT: 53.1 kg BP: 96/57 RVIDd: 2.2 cm (< 3.3) IVSd: 0.7 cm (0.6 - 1.1) LVIDd: 4.2 cm (3.9 - 5.3) LVPWd: 0.7 cm (0.6 - 1.1) IVSs: 1.0 cm LVIDs: 2.8 cm LVPWs: 1.2 cm LA Diam: 2.4 cm (2.7 - 3.8) Ao Diam: 2.7 cm (2.0 - 3.7) AV Cusp: 1.9 cm (1.5 - 2.6) MV EXCURSION: 14.555 mm (> 18.000) MV EF SLOPE: 89 mm/s (70 - 150) EPSS: 0.9 cm MV E Justen: 0.91 m/s MV DecT: 185 ms MV A Justen: 0.87 m/s MV E/A Ratio: 1.04 FINDINGS -------- Sinus rhythm. This was a technically good study. The left ventricular size is normal. Left ventricular wall thickness is normal. Overall left vent ricular systolic function is normal with, an EF between 60 - 65 %. The right ventricle is normal in size. The left atrium is normal in size. The right atrium is normal in size. The aortic valve is trileaflet and appears structurally normal. The mitral valve is normal. Trace tricuspid regurgitation present. There is no pulmonic regurgitation present. The aortic root size is normal. Normal inferior vena cava with normal inspiratory collapse consistent with estimated right atrial pre ssure of 5 mmHg. There is no pericardial effusion. CONCLUSIONS -------- 1. Sinus rhythm. 2. This was a technically good study. 3. The left ventricular size is normal. 4. Left ventricular wall thickness is normal. 5. Overall left ventricular systolic function is normal with, an EF between 60 - 65 %. 6. The right ventricle is normal in size. 7. The left atrium is normal in size. 8. The right atrium is normal in size. 9. The aortic valve is trileaflet and appears structurally normal. 10. The mitral valve is normal. 11. Trace tricuspid regurgitation present. 12. There is no pulmonic regurgitation present. 13. The aortic root size is normal. 14. Normal inferior vena cava with normal inspiratory collapse consistent with estimated right atrial pressure of 5 mmHg. 15. There is no pericardial effusion. PAIN MANAGEMENT NURSE: Melissa Shirley RDCS
--- NOTE | 2017-10-17 13:55 | P.GSCN ---
History of Present Illness Consult date: 10/17/17 Reason for Consult: Left subclavian vein near occlusion History of present illness: 22-year-old female with history of Hodgkin's lymphoma presented to the emergency department yesterday with chest pain, difficulty breathing and a sensation of swelling in her neck. Patient states she had these symptoms off for approximately 24-48 hours prior when deciding to undergo to the emergency department. She denies any pain in her left upper extremity or swelling at the onset of these symptoms. Currently she states she feels which improved still denying any complaints in her left upper extremity. CT evaluation of her neck and chest was performed which demonstrated significant narrowing of the subclavian vein almost to near occlusion. She was admitted to the hospital at that time placed on a heparin drip for what appeared to be acute thrombus in the subclavian vein. Currently she denies any fevers, chills, left upper extremity pain, numbness or tingling. Review of Systems All systems are reviewed and are otherwise negative unless mentioned in HPI past medical history. Past Medical History Past Medical History: No Reported History Additional Past Medical History / Comment(s): Hodgkin's lymphoma, please refer to the details in terms of the CAT scan of the chest abdomen and pelvis, left subclavion blood clot 10/16/17 History of Any Multi-Drug Resistant Organisms: None Reported Past Surgical History: No Surgical Hx Reported Additional Past Surgical History / Comment(s): LEFT AXILLARY NODE BX Past Anesthesia/Blood Transfusion Reactions: No Reported Reaction Past Psychological History: No Psychological Hx Reported Smoking Status: Never smoker Past Alcohol Use History: None Reported Past Drug Use History: None Reported - Past Family History Mother Family Medical History: No Reported History Additional Family Medical History / Comment(s): 2 grandparents with cancer Father Family Medical History: No Reported History Brother(s) Family Medical History: No Reported History Daughter(s) Family Medical History: No Reported History Son(s) Family Medical History: No Reported History Medications and Allergies Home Medications Medication Instructions Recorded Confirmed Type [place]-Linyah 1 tab PO DAILY 10/16/17 10/16/17 History Allergies Allergy/AdvReac Type Severity Reaction Status Date / Time No Known Allergies Allergy Verified 10/16/17 20:40 Surgical - Exam Vital Signs Temp Pulse Resp BP Pulse Ox 99.4 F 110 H 18 137/90 98 10/16/17 20:34 10/16/17 20:34 10/16/17 20:34 10/16/17 20:34 10/16/17 20:34 No evidence of edema of the left upper extremity. Patient has palpable radial pulses bilaterally. No evidence of phlegmasia. - General well developed, well nourished, no distress, no pain - Eyes PERRL, normal ocular movement - ENT normal pinna, normal nares - Neck no masses - Respiratory normal expansion, normal respiratory effort - Cardiovascular Rhythm: regular - Abdomen Abdomen: no distended - Integumentary no rash, no growths - Neurologic normal coordination, normal sensation - Psychiatric oriented to time, oriented to person, oriented to place, speech is normal Results - Labs 10/17/17 04:57 10/17/17 04:57 Abnormal Lab Results - Last 24 Hours (Table) 10/16/17 10/16/17 10/17/17 Range/Units 21:10 21:10 04:57 Lymphocytes # 0.7 L (1.0-4.8) k/uL APTT (22.0-30.0) sec Potassium 3.4 L (3.5-5.1) mmol/L Carbon Dioxide (22-30) mmol/L Glucose 112 H (74-99) mg/dL Lactate Dehydrogenase (313-618) U/L Urine Appearance Cloudy H (Clear) Ur Leukocyte Esterase Moderate H (Negative) Ur Squamous Epith Cells 6 H (0-4) /hpf Urine Bacteria Occasional H (None) /hpf Urine Mucus Rare H (None) /hpf 10/17/17 10/17/17 10/17/17 Range/Units 04:57 04:57 10:57 Lymphocytes # (1.0-4.8) k/uL APTT 42.3 H 68.0 H (22.0-30.0) sec Potassium (3.5-5.1) mmol/L Carbon Dioxide 20 L (22-30) mmol/L Glucose 147 H (74-99) mg/dL Lactate Dehydrogenase (313-618) U/L Urine Appearance (Clear) Ur Leukocyte Esterase (Negative) Ur Squamous Epith Cells (0-4) /hpf Urine Bacteria (None) /hpf Urine Mucus (None) /hpf 10/17/17 Range/Units 10:57 Lymphocytes # (1.0-4.8) k/uL APTT (22.0-30.0) sec Potassium (3.5-5.1) mmol/L Carbon Dioxide (22-30) mmol/L Glucose (74-99) mg/dL Lactate Dehydrogenase 301 L (313-618) U/L Urine Appearance (Clear) Ur Leukocyte Esterase (Negative) Ur Squamous Epith Cells (0-4) /hpf Urine Bacteria (None) /hpf Urine Mucus (None) /hpf Diabetes panel 10/16/17 10/17/17 Range/Units 21:10 04:57 Sodium 141 140 (137-145) mmol/L Potassium 3.4 L 4.2 (3.5-5.1) mmol/L Chloride 101 106 (98-107) mmol/L Carbon Dioxide 23 20 L (22-30) mmol/L BUN 10 7 (7-17) mg/dL Creatinine 0.71 0.55 (0.52-1.04) mg/dL Glucose 112 H 147 H (74-99) mg/dL Calcium 9.0 9.0 (8.4-10.2) mg/dL AST 20 18 (14-36) U/L ALT 27 30 (9-52) U/L Alkaline Phosphatase 44 42 (38-126) U/L Total Protein 7.2 6.9 (6.3-8.2) g/dL Albumin 4.5 4.3 (3.5-5.0) g/dL Calcium panel 10/16/17 10/17/17 Range/Units 21:10 04:57 Calcium 9.0 9.0 (8.4-10.2) mg/dL Albumin 4.5 4.3 (3.5-5.0) g/dL Pituitary panel 10/16/17 10/17/17 Range/Units 21:10 04:57 Sodium 141 140 (137-145) mmol/L Potassium 3.4 L 4.2 (3.5-5.1) mmol/L Chloride 101 106 (98-107) mmol/L Carbon Dioxide 23 20 L (22-30) mmol/L BUN 10 7 (7-17) mg/dL Creatinine 0.71 0.55 (0.52-1.04) mg/dL Glucose 112 H 147 H (74-99) mg/dL Calcium 9.0 9.0 (8.4-10.2) mg/dL Adrenal panel 10/16/17 10/17/17 Range/Units 21:10 04:57 Sodium 141 140 (137-145) mmol/L Potassium 3.4 L 4.2 (3.5-5.1) mmol/L Chloride 101 106 (98-107) mmol/L Carbon Dioxide 23 20 L (22-30) mmol/L BUN 10 7 (7-17) mg/dL Creatinine 0.71 0.55 (0.52-1.04) mg/dL Glucose 112 H 147 H (74-99) mg/dL Calcium 9.0 9.0 (8.4-10.2) mg/dL Total Bilirubin 0.7 0.6 (0.2-1.3) mg/dL AST 20 18 (14-36) U/L ALT 27 30 (9-52) U/L Alkaline Phosphatase 44 42 (38-126) U/L Total Protein 7.2 6.9 (6.3-8.2) g/dL Albumin 4.5 4.3 (3.5-5.0) g/dL - Imaging CT scan - chest: report reviewed (Significant narrowing of the left subclavian vein but it is patent) Assessment and Plan Assessment: 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 (1) Hodgkins disease Current Visit: No Status: Acute Code(s): C81.90 - HODGKIN LYMPHOMA, UNSPECIFIED, UNSPECIFIED SITE SNOMED Code(s): 219533801 Plan: Reviewed computed tomography scan in full detail with radiology. The vein appears to be collapsed likely secondary to external compression. There is flow throughout the vein and it appears to be patent throughout. There is no evidence of thrombus noted. When compared to her previous CTA there is compression noted previously but not to the same extent. This could be due to fibrotic changes. At this time I would not recommend oral anticoagulation secondary to patient has no left upper extremity symptoms. If she does progress and started to have symptoms then she may benefit in the future with balloon angioplasty or stenting. This was discussed with the on-call oncologist Dr. Hanson. Thank you for allowing me to participate in your patient's care. Time with Patient: Greater than 30
[2017-10-17 15:07] VITALS: BP 107/63; PULSE 83; TEMP 98.2
--- NOTE | 2017-10-17 18:54 | HP ---
HISTORY AND PHYSICAL COMBINATION HISTORY AND PHYSICAL AND DISCHARGE SUMMARY: CHIEF COMPLAINTS: Neck pain, chest pain and neck swelling. HISTORY OF PRESENT ILLNESS: This 22-year-old woman with a past medical history of Hodgkin's lymphoma, being followed by Dr. Brooke in the outpatient setting, presented to [facility] with complaints of chest pain. The patient had neck fullness and some swelling. Patient also had shortness of breath and multiple other symptomatology. Patient came to [facility] and the initial CT of the chest showed suspicious subclavian occlusion of the proximal left subclavian. The patient was also evaluated by Vascular Surgery, Dr. Lou, who compared the CT scans to the previous CT scan. The patient was treated initially with heparin. But the left upper extremity subclavian stenosis was secondary to external compression due to mediastinal lymphadenopathy secondary to Hodgkin's lymphoma, as suspected by Dr. Lou. No evidence of thrombosis was noted. Dr. Hanson has seen the patient and recommended the patient to be started on aspirin and discharged. Soft tissue neck was unremarkable. There is no history of fever or rigors. No history of headache, loss of consciousness, seizures. No history of pulmonary embolism was noted. PAST MEDICAL HISTORY: Hodgkin's lymphoma. MEDICATIONS: control pills. ALLERGIES: NONE. FAMILY HISTORY: History of cancer in the grandparents. SOCIAL HISTORY: No history of smoking. No history of alcohol. REVIEW OF SYSTEMS: ENT: As mentioned earlier. CARDIOVASCULAR SYSTEM: No angina, palpitations. RESPIRATORY SYSTEM: No cough, hemoptysis. GI: No nausea, vomiting. As mentioned earlier. : No dysuria or retention. NERVOUS SYSTEM: No numbness, weakness. ALLERGY/IMMUNOLOGY: No asthma, hayfever. MUSCULOSKELETAL: As mentioned earlier. HEMATOLOGY/ONCOLOGY: As mentioned earlier. ENDOCRINE: No history of hypothyroidism. CONSTITUTIONAL: As mentioned earlier. DERMATOLOGY: Negative. RHEUMATOLOGY: Negative. PSYCHIATRY: As mentioned earlier. PHYSICAL EXAMINATION: Patient is alert, oriented x3. Pulse is 83, blood pressure 107/63, respiration 16, temperature 98.2, pulse ox 98% on room air. HEENT: Conjunctivae normal. Oral mucosa moist. NECK: No jugular venous distention. No carotid bruit. No lymph node enlargement. CARDIOVASCULAR SYSTEM: S1, S2 muffled. No S3. No S4. RESPIRATORY SYSTEM: Breath sounds diminished at the bases. No rhonchi. No crackles. ABDOMEN: Soft, non-tender. No mass palpable. LEGS: No edema. No swelling. NERVOUS SYSTEM: Higher functions as mentioned earlier. Moves all 4 limbs. No focal motor or sensory deficit. LYMPHATICS: No lymph node palpable in neck, axillae or groin. SKIN: No ulcer, rash, bleeding. LABS AT THIS TIME: CBC within normal limits. Sodium 140, potassium 4.2. LDH is 301. UA noted. ASSESSMENT: 1. Chest pain and throat fullness, improved. 2. Left subclavian stenosis because of external compression secondary to lymphadenopathy secondary to Hodgkin's lymphoma. 3. History of Hodgkin's lymphoma. RECOMMENDATIONS AND DISCUSSION: In this 22-year-old woman who presented with multiple medical problems, at this time I recommend to continue current medications, continue symptomatic treatment. The patient was evaluated by Dr. Hanson as well as Dr. Lou, the vascular surgeon. The patient will be discharged with the following advice and medications: 1. Diet is cardiac. 2. Activity limited until followup. 3. Follow up with Dr. Brooke in 2-3 days. 4. Ecotrin 81 mg p.o. daily. 5. Continue with Tylenol p.r.n. 6. Motrin 400 mg t.i.d. p.r.n. MMODL / IJN: [id number] /
--- NOTE | 2017-10-17 19:29 | P.CONS ---
History of Present Illness - Reason for Consult Consult date: 10/17/17 History of Hodgkins Disease Requesting physician: Da Malone - Chief Complaint Chest Pain, SOB - History of Present Illness This is a very nice lady who presented to the hospital in ,with significant swelling in her neck,she stated she first noticed around February,. CT scan of neck done on 04/30/2016,revealed massive bilateral cervical nodes and massive mediastinal nodes extending to supraclavicular regions. On 05/02/2016,CT scan of chest/abdomen/pelvis revealed massive contigous adenopathy involving the prevascular space as well as AP window and paratracheal region extending down to superior margin of the heart,conglomerate soft tissue measures 9.7cm in transverse dimension and at least 7.3cm in AP dimension,3.9cm subcarinal adenopathy,tracheal deviation from left to right, right axillary node measured 3,5cm,left axillary nodes,left pleural effusion and pericardial effusion. 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 CBC from 04/30/2016 revealed mild microcytosis without anemia,normal total wbc, LDH was 1044,CMP unremarkable,HIV sceen was negative. On 05/15/2016,sed rate was 13.5,repeat CBC revealed total wbc of 13.5, hemoglobin 11.1 On 05/17/2016 bone marrow biopsy was negative for disease. Echo revealed very large pericardial effusion,she was admitted and had pericardial window. On 05/27/2016,PET scan revealed extensive disease in neck,chest,axillary nodes. On 05/22/2016,she started ABVD. Repeat PET on 07/07/2016 after cycle#2,revealed significant improvement (no residual uptake). Repeat echo on 09/11/2016 revealed EF of 45%,however,MUGA scan on 09/17/2016 revealed normal EF (40-45%), she was evaluated by house designer, locally and at [facility] in [place] and felt that her heart function was normal. She completed 6 cycles on 11/07/2016. Repeat PET scan on 12/28/2016 revealed no active disease. Repeat PET scan on 06/29/2017 revealed no evidence of recurrence.She feels well and active,no systemic symptoms.She has regular menstrual periods. 10/15/17 - Luz presented to the clinic with complaints of racing heart, hot and cold sweats, nausea and "just not feeling right". She did not have fever, EKG showed Normal Sinus Rhythm, Physical Assessment was within normal limits. Bloodwork was obtained and within normal limits. A chest xray completed and failed to show concern for any acute process. A CT scan and Echocardiogram was ordered and scheduled early next week, although she continued to have symptoms and increased shortness of breath and chest pain, therefore she presented to the emergency department for further evaluation. She denies any recent changes in bowels, bladder or urinary function. No changes in menstraul persiods. She had a mild 3LB weight loss in past 2 months, her appetite is same, and no increased fatigue. 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 She does not correlate eating anything new, undercooked, or being around anyone with acute infections. 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 Her mother and children were present with Luz during evaluation. Review of Systems A 14 point Review of systems assessed and completed and all negative except HPI. Past Medical History Past Medical History: No Reported History Additional Past Medical History / Comment(s): Hodgkin's lymphoma, please refer to the details in terms of the CAT scan of the chest abdomen and pelvis, left subclavion blood clot 10/16/17 History of Any Multi-Drug Resistant Organisms: None Reported Past Surgical History: No Surgical Hx Reported Additional Past Surgical History / Comment(s): LEFT AXILLARY NODE BX Past Anesthesia/Blood Transfusion Reactions: No Reported Reaction Past Psychological History: No Psychological Hx Reported Smoking Status: Never smoker Past Alcohol Use History: None Reported Past Drug Use History: None Reported - Past Family History Mother Family Medical History: No Reported History Additional Family Medical History / Comment(s): 2 grandparents with cancer Father Family Medical History: No Reported History Brother(s) Family Medical History: No Reported History Daughter(s) Family Medical History: No Reported History Son(s) Family Medical History: No Reported History Medications and Allergies Home Medications Medication Instructions Recorded Confirmed Type [place]-Linyah 1 tab PO DAILY 10/16/17 10/16/17 History Acetaminophen Tab [Tylenol] 650 mg PO Q6HR PRN tab 10/17/17 Rx Aspirin 81 mg PO DAILY #30 chew 10/17/17 Rx Ibuprofen [Motrin] 400 mg PO Q6HR PRN #10 tab 10/17/17 Rx Allergies Allergy/AdvReac Type Severity Reaction Status Date / Time No Known Allergies Allergy Verified 10/16/17 20:40 Physical Exam Vitals: Vital Signs Temp Pulse Pulse Resp BP BP Pulse Ox 10/17/17 15:28 83 16 10/17/17 13:53 98.2 F 83 16 107/63 98 10/17/17 05:00 98.0 F 76 16 96/57 98 10/16/17 23:56 97.1 F L 95 16 106/63 98 10/16/17 23:41 98.8 F 95 16 133/80 98 10/16/17 20:47 18 10/16/17 20:34 99.4 F 110 H 18 137/90 98 Intake and Output 10/17/17 10/17/17 10/17/17 06:59 14:59 22:59 Intake Total 000.557 4187.21 Balance 981.697 3927.21 Intake: Intake, IV Titration 424.468 781.21 Amount Heparin Sodium,Porcine/ 124.468 131.21 D5w Pmx 25,000 unit In Dextrose/Water 1 500ml. bag @ 18 UNITS/KG/HR 19.1 mls/hr IV .Q24H [facility] Rx#: [id number] Sodium Chloride 0.9% 1, 300 650 000 ml @ 75 mls/hr IV . [id number] [facility] Rx#:[id number] Oral 250 700 Other: Voiding Method Toilet Toilet Toilet # Voids 1 3 3 Weight 53.07 kg 53.07 kg 53.07 kg - Constitutional General appearance: no acute distress, thin - EENT Eyes: EOMI, PERRLA, dentition normal ENT: NA/AT, normal oropharynx - Neck Neck: normal ROM - Respiratory Respiratory: bilateral: CTA - Cardiovascular Rhythm: regular Heart sounds: normal: S1, S2 - Gastrointestinal General gastrointestinal: normal bowel sounds, soft - Integumentary Integumentary: pale - Neurologic Neurologic: CNII-XII intact - Musculoskeletal Musculoskeletal: gait normal, strength equal bilaterally - Psychiatric Psychiatric: A&O x's 3, appropriate affect, intact judgment & insight Results CBC & Chem 7: 10/17/17 04:57 10/17/17 04:57 Labs: Abnormal Lab Results - Last 24 Hours (Table) 10/16/17 10/16/17 10/17/17 Range/Units 21:10 21:10 04:57 Lymphocytes # 0.7 L (1.0-4.8) k/uL APTT (22.0-30.0) sec Potassium 3.4 L (3.5-5.1) mmol/L Carbon Dioxide (22-30) mmol/L Glucose 112 H (74-99) mg/dL Lactate Dehydrogenase (313-618) U/L Urine Appearance Cloudy H (Clear) Ur Leukocyte Esterase Moderate H (Negative) Ur Squamous Epith Cells 6 H (0-4) /hpf Urine Bacteria Occasional H (None) /hpf Urine Mucus Rare H (None) /hpf 10/17/17 10/17/17 10/17/17 Range/Units 04:57 04:57 10:57 Lymphocytes # (1.0-4.8) k/uL APTT 42.3 H 68.0 H (22.0-30.0) sec Potassium (3.5-5.1) mmol/L Carbon Dioxide 20 L (22-30) mmol/L Glucose 147 H (74-99) mg/dL Lactate Dehydrogenase (313-618) U/L Urine Appearance (Clear) Ur Leukocyte Esterase (Negative) Ur Squamous Epith Cells (0-4) /hpf Urine Bacteria (None) /hpf Urine Mucus (None) /hpf 10/17/17 Range/Units 10:57 Lymphocytes # (1.0-4.8) k/uL APTT (22.0-30.0) sec Potassium (3.5-5.1) mmol/L Carbon Dioxide (22-30) mmol/L Glucose (74-99) mg/dL Lactate Dehydrogenase 301 L (313-618) U/L Urine Appearance (Clear) Ur Leukocyte Esterase (Negative) Ur Squamous Epith Cells (0-4) /hpf Urine Bacteria (None) /hpf Urine Mucus (None) /hpf Chest x-ray: report reviewed CT scan - chest: report reviewed (CT neck reviewed) Assessment and Plan Plan: Assessment and Recommendations: 1. Left Upper Extremity Subclavin Vein Stenosis Secondary to external compression from known history of Hodgkins Lymphoma. Mediastinal Lymph Nodes - Denies any pain or discomfort in LUE - No evidence of Thrombosis - Vascular Surgery did consult and does not recommend intervention with angioplasty or stenting at this time, if patient becomes symptomatic at the site of stenosis than maybe re-evalauted for intervention at that time. Discussed with Dr. Hanson and no need for anticoagulation at this time, although maybe discharge on baby aspirin. 2. HX: Hodgkins Lymphoma - Does not appear to be recurrence on current scan but rather narrowing from previous bulky lymphoma and fibrotic changes from the previous fribrotic mediastinal nodes. These nodes appear the same size as previous PET and they were not metabolically active at that time. - Patient ok for discharge from our standpoint 3. Chest Pain and Shortness of Breath - - Symptoms do not necessarily correlate with findings from CT. Echocardiogram will be completed as she previously was exposed to antracycline based chemotherapy. - Etiology of symptoms remains unclear, will follow-up with Dr. Brooke as an outpatient in a couple weeks. Physician Attestation: I have completed the full history and physical of this patient and agree with above dictation, dictated as a scribe.
[2017-10-18] MEDS ORDERED: ASPIRIN 81 MG PO SCH (09:00)
== END 2017-10-17 18:00 | disposition home or self-care (01) | DRG 300 ==
LOC: EC 20:31 → 5MS5E 22:39
PROVIDERS: ADMIT Hospitalist; ATTEND Hospitalist
DX: I87.1 Compression of vein (principal); C81.10 Nodular sclerosis Hodgkin lymphoma, unspecified site; R07.9 Chest pain, unspecified; Z79.82 Long term (current) use of aspirin; Z79.3 Long term (current) use of hormonal contraceptives; Z87.891 Personal history of nicotine dependence; Z92.21 Personal history of antineoplastic chemotherapy; Z85.72 Personal history of non-Hodgkin lymphomas; Z80.9 Family history of malignant neoplasm, unspecified
CPT/HCPCS: 36415; 70491; 71275; 80053; 81001; 81025; 82550; 82553; 83615; 84484; 84550; 85025; 85610; 85730; 93005; 93306; 96361; 96365; 96375; 96376; 99285

== ENCOUNTER 2017-11-13 22:56 | Emergency (ER) | payer OTHER ==
[2017-11-13 23:46] LABS: Basophils % (A) 0 %; Eosinophils # (A) 0.1 k/uL (0-0.7); Eosinophils % (A) 2 %; HCT 38.9 % (34.0-46.0); HGB 13.1 gm/dL (11.4-16.0); Lymphocytes # (A) 1.9 k/uL (1.0-4.8); Lymphocytes % (A) 26 %; MCHC 33.6 g/dL (31.0-37.0); MCV 89.4 fL (80.0-100.0); Mean Platelet Volume 8.2; Monocytes # (A) 0.4 k/uL (0-1.0); Monocytes % (A) 5 %; Neutrophils # (A) 4.8 k/uL (1.3-7.7); Neutrophils % (A) 65 %; Platelet Count 174 k/uL (150-450); RBC 4.35 m/uL (3.80-5.40); WBC 7.3 k/uL (3.8-10.6)
--- NOTE | 2017-11-13 23:50 | XR ---
EXAMINATION TYPE: XR chest 2V DATE OF EXAM: 11/13/2017 COMPARISON: 10/15/2017 HISTORY: Chest pain TECHNIQUE: Frontal and lateral views of the chest are obtained. FINDINGS: Heart and mediastinum are normal. Lungs are clear. Diaphragm is normal. Bony thorax is nor mal. There are chest leads. IMPRESSION: Normal chest. No change.
[2017-11-13 23:57] LABS: ALT 35 U/L (9-52); AST 21 U/L (14-36); Albumin 4.1 g/dL (3.5-5.0); Alkaline Phosphatase 46 U/L (38-126); Anion Gap 11 mmol/L; Blood Urea Nitrogen 12 mg/dL (7-17); Calcium 8.6 mg/dL (8.4-10.2); Carbon Dioxide 24 mmol/L (22-30); Chloride 102 mmol/L (98-107); Glucose 94 mg/dL (74-99); Potassium 3.8 mmol/L (3.5-5.1); Sodium 137 mmol/L (137-145); Total Bilirubin 0.7 mg/dL (0.2-1.3); Total Protein 6.7 g/dL (6.3-8.2)
[2017-11-13 23:59] LABS: Creatine Kinase 64 U/L (30-135); D-Dimer 0.36 mg/L FEU (<0.60); Partial Thromboplastin Time 25.2 sec (22.0-30.0); Prothrombin Time 10.2 sec (9.0-12.0)
[2017-11-14 00:12] LABS: Creatine Kinase MB <0.2 ng/mL (0.0-2.4); Troponin I <0.012 ng/mL (0.000-0.034)
[2017-11-14] MEDS ORDERED: KETOROLAC 30 MG/ML 1 ML VIAL IVP STA (00:18)
--- NOTE | 2017-11-14 00:20 | ED ---
Chest Pain HPI - General Chief Complaint: Chest Pain Stated Complaint: Chest pain Time Seen by Provider: 11/13/17 23:04 Source: patient Mode of arrival: wheelchair Limitations: no limitations - History of Present Illness Initial Comments: 22-year-old female patient with past medical history significant for Hodgkin's lymphoma presents to the emergency department today for evaluation of chest pain. Patient states that for the last couple of days she has had increased pain in her chest with shortness of breath. 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 Initially was thought to be a blood clot however they ruled that out and feel that the vein is collapsed. Patient was then treated with anti-inflammatories and the pain improved however patient continued to have intermittent pain and shortness of breath with activity. Patient states that yesterday she started having worsening of her symptoms. She denies any fevers or chills. States she has had some nasal congestion but denies any cough. She denies any increase in physical activity or injuries to the chest. She denies any swelling, palpitations, nausea, vomiting, or abdominal pain. Denies any chance of . States she does take control. Denies any recent travel or long car rides. Patient denies any recent rash, diarrhea, constipation, back pain, numbness, tingling, dizziness, weakness, hematuria, dysuria, urinary urgency, urinary frequency, headache, visual changes, or any other complaints. - Related Data Home Medications Medication Instructions Recorded Confirmed Hill-Linyah 1 tab PO DAILY 10/16/17 11/13/17 Naproxen [Naprosyn] 500 mg PO Q12HR 11/13/17 11/13/17 Omeprazole [PriLOSEC] 20 mg PO AC-BRKFST 11/13/17 11/13/17 Previous Rx's Medication Instructions Recorded Acetaminophen Tab [Tylenol] 650 mg PO Q6HR PRN tab 10/17/17 Allergies Allergy/AdvReac Type Severity Reaction Status Date / Time No Known Allergies Allergy Verified 11/13/17 23:12 Review of Systems ROS Statement: Those systems with pertinent positive or pertinent negative responses have been documented in the HPI. ROS Other: All systems not noted in ROS Statement are negative. EKG Findings - EKG Comments: EKG Findings:: EKG obtained at 2323 shows normal sinus rhythm with a right axis deviation. Ventricular rate is 79, [place] interval 126, QRS duration 86, QT 402, QTc 460. No evidence of ST elevation or depression. Past Medical History Past Medical History: No Reported History Additional Past Medical History / Comment(s): Hodgkin's lymphoma, please refer to the details in terms of the CAT scan of the chest abdomen and pelvis, left subclavion blood clot 10/16/17 History of Any Multi-Drug Resistant Organisms: None Reported Past Surgical History: No Surgical Hx Reported Additional Past Surgical History / Comment(s): LEFT AXILLARY NODE BX Past Anesthesia/Blood Transfusion Reactions: No Reported Reaction Past Psychological History: No Psychological Hx Reported Smoking Status: Never smoker Past Alcohol Use History: None Reported Past Drug Use History: None Reported - Past Family History Mother Family Medical History: No Reported History Additional Family Medical History / Comment(s): 2 grandparents with cancer Father Family Medical History: No Reported History Brother(s) Family Medical History: No Reported History Daughter(s) Family Medical History: No Reported History Son(s) Family Medical History: No Reported History General Exam Limitations: no limitations General appearance: alert, in no apparent distress, other (This is a well- developed, well-nourished adult female patient in no acute distress. Vital signs upon presentation are temperature 98.2F, pulse 99, respirations 19, blood pressure 136/88, pulse ox 100% on room air.) Eye exam: Present: normal appearance, PERRL, EOMI. Absent: scleral icterus, conjunctival injection, periorbital swelling ENT exam: Present: normal exam, normal oropharynx, mucous membranes moist Respiratory exam: Present: normal lung sounds bilaterally. Absent: respiratory distress, wheezes, rales, rhonchi, stridor Cardiovascular Exam: Present: regular rate, normal rhythm, normal heart sounds. Absent: systolic murmur, diastolic murmur, rubs, gallop, clicks GI/Abdominal exam: Present: soft, normal bowel sounds. Absent: distended, tenderness, guarding, rebound, rigid Neurological exam: Present: alert, oriented X3, CN II-XII intact Psychiatric exam: Present: normal affect, normal mood Skin exam: Present: warm, dry, intact, normal color. Absent: rash Course Vital Signs 0611/13/17 11/14/17 22:58 23:38 00:37 Temperature 98.2 F Pulse Rate 99 82 81 Respiratory 19 16 15 Rate Blood Pressure 136/88 123/68 111/71 O2 Sat by Pulse 100 100 100 Oximetry 11/14/17 01:49 Temperature 98.6 F Pulse Rate 92 Respiratory 16 Rate Blood Pressure 98/58 O2 Sat by Pulse 100 Oximetry Chest Pain MDM - MDM RADIOLOGY:Two-view x-ray of the chest is obtained. Heart and mediastinum are normal. Lungs are clear. Diaphragm is normal. Bony thorax is normal. There are chest leads. Impression by Dr. Nathan shows normal chest with no change. MDM: 22-year-old female patient presented to the emergency department today for complaints of chest pain and shortness of breath. This is been going on intermittently over the last month however worsened over the last 2 days. Physical examination is unremarkable. Patient's pain is not reproducible. EKG shows normal sinus rhythm. Chest x-ray was normal. Labs reviewed and are unremarkable. D-dimer was negative. Did discuss findings and results with the patient. She is instructed to continue taking anti-inflammatories as this has worked for the pain in the past. She is instructed to follow-up with her oncologist Dr. Brooke as well as her primary care physician for further evaluation. Return parameters were discussed in detail. She verbalizes understanding and agrees with this plan. Disposition Clinical Impression: Chest pain Disposition: HOME SELF-CARE Condition: Good Instructions: Chest Pain (ED) Additional Instructions: Follow-up with Dr. Brooke and your primary care physician for recheck as soon as possible. Return here immediately for any new, worsening, or concerning symptoms. Is patient prescribed a controlled substance at d/c from ED?: No Referrals: None,Stated [Primary Care Provider] - 1-2 days Time of Disposition: 01:11
[2017-11-14 01:50] VITALS: BP 98/58; PULSE 92; RESP 16; TEMP 98.6
== END 2017-11-14 01:49 | disposition home or self-care (01) ==
LOC: EC 22:56
DX: R07.9 Chest pain, unspecified (principal); R06.02 Shortness of breath; R09.81 Nasal congestion; Z79.1 Long term (current) use of non-steroidal anti-inflammatories (NSAID); Z79.3 Long term (current) use of hormonal contraceptives; Z79.899 Other long term (current) drug therapy
CPT/HCPCS: 36415; 93005; 85379; 80053; 82550; 82553; 84484; 85025; 85610; 85730; 81025; 71046; 99285; 96374; J1885

== ENCOUNTER 2017-11-14 19:52 | Emergency (ER) | payer OTHER ==
[2017-11-14] MEDS ORDERED: MAG HYDROX/AL HYDROX/SIMETH 30 ML, HYOSCYAMINE ELIXIR 10 ML, CIMETIDINE HCL 300 MG, LID... PO STA ×4 (21:50)
[2017-11-14] MEDS ORDERED: SODIUM CHLORIDE 0.9% 500 ML IV STA (21:50)
[2017-11-14 22:24] LABS: Basophils % (A) 0 %; Eosinophils # (A) 0.1 k/uL (0-0.7); Eosinophils % (A) 1 %; HCT 40.6 % (34.0-46.0); HGB 13.6 gm/dL (11.4-16.0); Lymphocytes # (A) 1.6 k/uL (1.0-4.8); Lymphocytes % (A) 27 %; MCH 30.3 pg (25.0-35.0); MCHC 33.5 g/dL (31.0-37.0); MCV 90.3 fL (80.0-100.0); Mean Platelet Volume 7.7; Monocytes # (A) 0.3 k/uL (0-1.0); Monocytes % (A) 5 %; Neutrophils # (A) 3.9 k/uL (1.3-7.7); Neutrophils % (A) 65 %; Platelet Count 191 k/uL (150-450); RBC 4.49 m/uL (3.80-5.40)
[2017-11-14 22:28] LABS: Appearance,Urine Clear (Clear); Bilirubin,Urine Negative (Negative); Blood,Urine Negative (Negative); Color,Urine Light Yellow; Glucose,Urine (UA) Negative (Negative); Ketones,Urine Negative (Negative); Leukocyte Esterase,Urine Negative (Negative); Nitrite,Urine Negative (Negative); Protein,Urine Negative (Negative); Specific Gravity,Urine 1.006 (1.001-1.035); Urobilinogen,Urine <2.0 mg/dL (<2.0)
[2017-11-14 22:35] LABS: Anion Gap 10 mmol/L; Blood Urea Nitrogen 8 mg/dL (7-17); Calcium 8.7 mg/dL (8.4-10.2); Carbon Dioxide 25 mmol/L (22-30); Chloride 104 mmol/L (98-107); Glucose 88 mg/dL (74-99); Potassium 4.2 mmol/L (3.5-5.1); Sodium 139 mmol/L (137-145)
[2017-11-14 23:28] VITALS: RESP 18
[2017-11-14] MEDS ORDERED: RX INFO: IV CONTRAST WAS GIVEN 1 EACH MISC MISCELLANE PRN (23:51)
--- NOTE | 2017-11-15 00:37 | CT ---
EXAMINATION TYPE: CT chest w con DATE OF EXAM: 11/15/2017 COMPARISON: 10/16/2017 HISTORY: SOB, Chest pain CT DLP: 132.10 mGycm Automated exposure control for dose reduction was used. CONTRAST: CT scan of the chest is performed with IV Contrast, patient injected with 100 mL of Isovue 300. FINDINGS: The lungs are clear of infiltrate. There is no pleural effusion. Heart size is normal. There is no pe ricardial effusion. There is increased soft tissue density in the middle and anterior mediastinum con sistent with adenopathy. This measures up to 1.5 cm in thickness. I see no filling defects in the pul monary arteries. The upper abdominal soft tissues are unremarkable. The axilla are unremarkable. The bony thorax is intact. IMPRESSION: There is superior and middle mediastinal adenopathy without change compared to last exam .
--- NOTE | 2017-11-15 01:10 | ED ---
General Adult HPI - General Chief complaint: GI Bleed Stated complaint: Rectal bleeding Time Seen by Provider: 11/14/17 20:53 Source: patient, family Mode of arrival: ambulatory Limitations: no limitations - History of Present Illness Initial comments: 22-year-old female with past medical history of Hodgkin's lymphoma presented for evaluation of hematochezia and chest discomfort. She was seen at this facility yesterday and workup was negative and she was discharged home however she continues to have her symptoms. She states that she called her oncologist who prescribed her steroids but she hasn't taken them yet. She continued to have the chest discomfort and generalized fatigue and came to the ED for further treatment and evaluation. She further states that she had an episode of hematochezia which is painful however states that this was during an abnormally firm and difficult to pass stool. - Related Data Home Medications Medication Instructions Recorded Confirmed Weld-Linyah 1 tab PO DAILY 10/16/17 11/14/17 Naproxen [Naprosyn] 500 mg PO Q12HR 11/13/17 11/14/17 Omeprazole [PriLOSEC] 20 mg PO AC-BRKFST 11/13/17 11/14/17 methylPREDNISolone [Medrol Dose See Taper PO DIRECTED 11/14/17 11/14/17 Pack] Allergies Allergy/AdvReac Type Severity Reaction Status Date / Time No Known Allergies Allergy Verified 11/14/17 20:53 Review of Systems ROS Statement: Those systems with pertinent positive or pertinent negative responses have been documented in the HPI. ROS Other: All systems not noted in ROS Statement are negative. Constitutional: Denies: fever, chills Eyes: Denies: eye pain, vision change ENT: Denies: ear pain, throat pain Respiratory: Denies: cough, dyspnea Cardiovascular: Reports: chest pain. Denies: palpitations Endocrine: Reports: fatigue. Denies: polydipsia, polyuria Gastrointestinal: Reports: constipation, hematochezia. Denies: abdominal pain, nausea, vomiting, diarrhea, hematemesis, melena Genitourinary: Denies: urgency, dysuria Musculoskeletal: Denies: back pain, arthralgia Skin: Denies: rash, lesions Neurological: Denies: headache, weakness Psychiatric: Denies: anxiety, depression Hematological/Lymphatic: Denies: easy bleeding, easy bruising Past Medical History Past Medical History: No Reported History Additional Past Medical History / Comment(s): Hodgkin's lymphoma, please refer to the details in terms of the CAT scan of the chest abdomen and pelvis, left subclavion blood clot 10/16/17 History of Any Multi-Drug Resistant Organisms: None Reported Past Surgical History: No Surgical Hx Reported Additional Past Surgical History / Comment(s): LEFT AXILLARY NODE BX Past Anesthesia/Blood Transfusion Reactions: No Reported Reaction Past Psychological History: No Psychological Hx Reported Smoking Status: Never smoker Past Alcohol Use History: None Reported Past Drug Use History: None Reported - Past Family History Mother Family Medical History: No Reported History Additional Family Medical History / Comment(s): 2 grandparents with cancer Father Family Medical History: No Reported History Brother(s) Family Medical History: No Reported History Daughter(s) Family Medical History: No Reported History Son(s) Family Medical History: No Reported History General Exam Limitations: no limitations General appearance: alert, in no apparent distress Head exam: Present: atraumatic, normocephalic Eye exam: Present: normal appearance, PERRL ENT exam: Present: normal exam, normal oropharynx Neck exam: Present: normal inspection. Absent: tenderness Respiratory exam: Present: normal lung sounds bilaterally. Absent: respiratory distress, wheezes, rales, rhonchi, stridor Cardiovascular Exam: Present: regular rate, normal rhythm GI/Abdominal exam: Present: soft. Absent: distended, tenderness, guarding, rebound, rigid Rectal exam: Present: deferred Extremities exam: Present: normal inspection, full ROM Back exam: Present: normal inspection, full ROM Neurological exam: Present: alert, oriented X3 Psychiatric exam: Present: normal affect, normal mood Skin exam: Present: warm, dry, intact Course Vital Signs 11/14/17 11/14/17 19:59 23:27 Temperature 98.7 F Pulse Rate 95 73 Respiratory 20 18 Rate Blood Pressure 111/77 121/63 O2 Sat by Pulse 99 98 Oximetry EKG Findings - EKG Comments: EKG Findings:: Number sinus rhythm with right axis deviation and a ventricular rate of 77. Medical Decision Making - Medical Decision Making 23-year-old female with past medical history of Hodgkin's disease presented for evaluation of chest discomfort and blood in her stool. On physical examination she appears to be in no apparent distress and vital signs are stable. History is significant for a suture tear as she is constipated and states that the pain and the blood was only after having a very hard and firm bowel movement that [place] came through. The chest discomfort she was seen here for yesterday and workup was expanded to encompass further etiologies. Thyroid study was within normal limits, EKG as shown above, and remainder of labs showed no significant abnormalities. He was a patient has a past medical history of Hodgkin's, as well as concerns for vascular disease a CT chest was performed which showed enlarged lymph nodes but this is unchanged from previous computed tomography scan. The patient was informed of all these results and through shared decision making it was determined that she would be discharged with instructions follow-up with her primary care physician but to return to this facility if her symptoms should worsen or persist. The patient acknowledged an understanding of all information provided and agreed with this plan of care. - Lab Data Result diagrams: 11/14/17 22:14 11/14/17 22:14 Lab Results 11/14/17 11/14/17 11/14/17 Range/Units 22:14 22:14 22:14 WBC 6.0 (3.8-10.6) k/uL RBC 4.49 (3.80-5.40) m/uL Hgb 13.6 (11.4-16.0) gm/dL Hct 40.6 (34.0-46.0) % MCV 90.3 (80.0-100.0) fL MCH 30.3 (25.0-35.0) pg MCHC 33.5 (31.0-37.0) g/dL RDW 13.0 (11.5-15.5) % Plt Count 191 (150-450) k/uL Neutrophils % 65 % Lymphocytes % 27 % Monocytes % 5 % Eosinophils % 1 % Basophils % 0 % Neutrophils # 3.9 (1.3-7.7) k/uL Lymphocytes # 1.6 (1.0-4.8) k/uL Monocytes # 0.3 (0-1.0) k/uL Eosinophils # 0.1 (0-0.7) k/uL Basophils # 0.0 (0-0.2) k/uL Sodium 139 (137-145) mmol/L Potassium 4.2 (3.5-5.1) mmol/L Chloride 104 (98-107) mmol/L Carbon Dioxide 25 (22-30) mmol/L Anion Gap 10 mmol/L BUN 8 (7-17) mg/dL Creatinine 0.70 (0.52-1.04) mg/dL Est GFR (CKD-EPI)AfAm >90 (>60 ml/min/1.73 sqM) Est GFR (CKD-EPI)NonAf >90 (>60 ml/min/1.73 sqM) Glucose 88 (74-99) mg/dL Calcium 8.7 (8.4-10.2) mg/dL TSH 1.700 (0.465-4.680) mIU/L Urine Color Light Yellow Urine Appearance Clear (Clear) Urine pH 6.0 (5.0-8.0) Ur Specific [employer] 1.006 (1.001-1.035) Urine Protein Negative (Negative) Urine Glucose (UA) Negative (Negative) Urine Ketones Negative (Negative) Urine Blood Negative (Negative) Urine Nitrite Negative (Negative) Urine Bilirubin Negative (Negative) Urine Urobilinogen <2.0 (<2.0) mg/dL Ur Leukocyte Esterase Negative (Negative) Disposition Clinical Impression: Chest pain, Rectal bleed Disposition: HOME SELF-CARE Condition: Stable Instructions: Chest Pain (ED), Dyspnea (ED), Anxiety (ED) Is patient prescribed a controlled substance at d/c from ED?: No Referrals: Sha Solano MD [STAFF PHYSICIAN] - 1-2 days Time of Disposition: 01:10
[2017-11-15 01:21] VITALS: BP 120/65; PULSE 86; TEMP 97.8
== END 2017-11-15 01:21 | disposition home or self-care (01) ==
LOC: EC 19:52
DX: K92.1 Melena (principal); R07.89 Other chest pain; R59.0 Localized enlarged lymph nodes; R53.83 Other fatigue; Z79.1 Long term (current) use of non-steroidal anti-inflammatories (NSAID); Z79.3 Long term (current) use of hormonal contraceptives; Z79.52 Long term (current) use of systemic steroids; Z79.899 Other long term (current) drug therapy
CPT/HCPCS: 36415; 93005; 80048; 84443; 85025; 81003; 71260; 99285; 96360; Q9967

== ENCOUNTER 2017-12-29 10:25 | Emergency (ER) | payer OTHER ==
[2017-12-29 12:38] LABS: Basophils % (A) 1 %; Eosinophils # (A) 0.1 k/uL (0-0.7); Eosinophils % (A) 1 %; HCT 45.5 % (34.0-46.0); HGB 14.7 gm/dL (11.4-16.0); Lymphocytes # (A) 1.7 k/uL (1.0-4.8); Lymphocytes % (A) 26 %; MCH 29.5 pg (25.0-35.0); MCHC 32.2 g/dL (31.0-37.0); MCV 91.6 fL (80.0-100.0); Mean Platelet Volume 7.2; Monocytes # (A) 0.3 k/uL (0-1.0); Monocytes % (A) 4 %; Neutrophils # (A) 4.4 k/uL (1.3-7.7); Neutrophils % (A) 66 %; Platelet Count 177 k/uL (150-450); RBC 4.97 m/uL (3.80-5.40); RDW 13.1 % (11.5-15.5); WBC 6.7 k/uL (3.8-10.6)
--- NOTE | 2017-12-29 12:43 | ED ---
General Adult HPI - General Chief complaint: Chest Pain Stated complaint: Chest pain/hand side of face tingling Time Seen by Provider: 12/29/17 12:27 Source: patient, RN notes reviewed, old records reviewed Mode of arrival: ambulatory Limitations: no limitations - History of Present Illness Initial comments: patient is a 22-year-old female significant past medical history for Hodgkin's lymphoma, presents to the emergency room with a chief complaint of numbness tingling upper extremities, left side of the face, ear pain, throat pain, and chest pain. Patient states that symptoms began a few months ago. Patient patient says she's had multiple ER visits for this. She states she follow-up with her oncologist were advised follow-up with hedis coordinator. Patient states that she was placed on steroids which was taking for approximately one month which did seem to improve the symptoms. She states when she saw a hedis coordinator off steroids started on colchicine. She states that this was one week ago. She states that by the end of the week she began having increased symptoms once again of numbness tingling and sharp chest pains. Patient denies any other complaints. She states she's had same symptoms she was feeling prior. - Related Data Home Medications Medication Instructions Recorded Confirmed Ford-Linyah 1 tab PO DAILY 10/16/17 12/29/17 Colchicine 0.6 mg PO BID 12/29/17 12/29/17 Allergies Allergy/AdvReac Type Severity Reaction Status Date / Time No Known Allergies Allergy Verified 12/29/17 12:30 Review of Systems ROS Statement: Those systems with pertinent positive or pertinent negative responses have been documented in the HPI. ROS Other: All systems not noted in ROS Statement are negative. Past Medical History Past Medical History: Cancer Additional Past Medical History / Comment(s): Hodgkin's lymphoma, please refer to the details in terms of the CAT scan of the chest abdomen and pelvis, left subclavion blood clot 10/16/17 History of Any Multi-Drug Resistant Organisms: None Reported Past Surgical History: No Surgical Hx Reported Additional Past Surgical History / Comment(s): LEFT AXILLARY NODE BX Past Anesthesia/Blood Transfusion Reactions: No Reported Reaction Past Psychological History: No Psychological Hx Reported Smoking Status: Never smoker Past Alcohol Use History: None Reported Past Drug Use History: None Reported - Past Family History Mother Family Medical History: No Reported History Additional Family Medical History / Comment(s): 2 grandparents with cancer Father Family Medical History: No Reported History Brother(s) Family Medical History: No Reported History Daughter(s) Family Medical History: No Reported History Son(s) Family Medical History: No Reported History General Exam - General Exam Comments Initial Comments: General: The patient is awake and alert, in no distress, and does not appear acutely ill. Eye: Pupils are equal, round and reactive to light, extra-ocular movements are intact. No nystagmus. There is normal conjunctiva bilaterally. No signs of icterus. Ears, nose, mouth and throat: There are moist mucous membranes and no oral lesions. Neck: The neck is supple, there is no tenderness or JVD. Cardiovascular: There is a regular rate and rhythm. No murmur, rub or gallop is appreciated. Respiratory: Lungs are clear to auscultation, respirations are non-labored, breath sounds are equal. No wheezes, stridor, rales, or rhonchi. Musculoskeletal: Normal ROM, no tenderness. Strength 5/5. Sensation intact. Pulses equal bilaterally 2+. Neurological: A&O x 3. CN II-XII intact, There are no obvious motor or sensory deficits. Coordination appears grossly intact. Speech is normal. Skin: Skin is warm and dry and no rashes or lesions are noted. Psychiatric: Cooperative, appropriate mood & affect, normal judgment. Limitations: no limitations Course Vital Signs 12/29/17 12/29/17 10:37 13:39 Temperature 98.5 F 98.8 F Pulse Rate 104 H 84 Respiratory 20 18 Rate Blood Pressure 116/79 121/81 O2 Sat by Pulse 99 99 Oximetry EKG Findings - EKG Comments: EKG Findings:: EKG performed at 12:15 courses normal sinus rhythm at 76 beats per minute. [place] interval 130. QRS 82. QT/QTC 388/436. No acute changes. Medical Decision Making - Medical Decision Making Patient's labs been reviewed are unremarkable. EKG shows normal sinus rhythm. Chest x-ray was negative. Patient admits that she's had these symptoms for several months. She states when away when she was on steroids. States she was stopped steroids one week ago started called seen by the hedis coordinator has been having increased symptoms once again. His was discussed with them physician Dr. Diego. At this time patient will be discharged home given short prescription of steroids advised follow-up with her oncologist and also cardiology. Advised return here to the emergency room if any symptoms increase or worsen appropriate concerns. - Lab Data Result diagrams: 12/29/17 12:25 12/29/17 12:25 Lab Results 12/29/17 12/29/17 12/29/17 Range/Units 12:25 12:25 12:25 WBC 6.7 (3.8-10.6) k/uL RBC 4.97 (3.80-5.40) m/uL Hgb 14.7 (11.4-16.0) gm/dL Hct 45.5 (34.0-46.0) % MCV 91.6 (80.0-100.0) fL MCH 29.5 (25.0-35.0) pg MCHC 32.2 (31.0-37.0) g/dL RDW 13.1 (11.5-15.5) % Plt Count 177 (150-450) k/uL Neutrophils % 66 % Lymphocytes % 26 % Monocytes % 4 % Eosinophils % 1 % Basophils % 1 % Neutrophils # 4.4 (1.3-7.7) k/uL Lymphocytes # 1.7 (1.0-4.8) k/uL Monocytes # 0.3 (0-1.0) k/uL Eosinophils # 0.1 (0-0.7) k/uL Basophils # 0.0 (0-0.2) k/uL PT (9.0-12.0) sec INR (<1.2) APTT (22.0-30.0) sec Sodium 142 (137-145) mmol/L Potassium 3.9 (3.5-5.1) mmol/L Chloride 104 (98-107) mmol/L Carbon Dioxide 27 (22-30) mmol/L Anion Gap 11 mmol/L BUN 7 (7-17) mg/dL Creatinine 0.75 (0.52-1.04) mg/dL Est GFR (CKD-EPI)AfAm >90 (>60 ml/min/1.73 sqM) Est GFR (CKD-EPI)NonAf >90 (>60 ml/min/1.73 sqM) Glucose 91 (74-99) mg/dL Calcium 9.2 (8.4-10.2) mg/dL Total Bilirubin 1.2 (0.2-1.3) mg/dL AST 30 (14-36) U/L ALT 45 (9-52) U/L Alkaline Phosphatase 39 (38-126) U/L Total Creatine Kinase 45 (30-135) U/L CK-MB (CK-2) <0.2 (0.0-2.4) ng/mL CK-MB (CK-2) Rel Index Troponin I <0.012 (0.000-0.034) ng/mL Total Protein 7.7 (6.3-8.2) g/dL Albumin 4.8 (3.5-5.0) g/dL 12/29/17 Range/Units 12:25 WBC (3.8-10.6) k/uL RBC (3.80-5.40) m/uL Hgb (11.4-16.0) gm/dL Hct (34.0-46.0) % MCV (80.0-100.0) fL MCH (25.0-35.0) pg MCHC (31.0-37.0) g/dL RDW (11.5-15.5) % Plt Count (150-450) k/uL Neutrophils % % Lymphocytes % % Monocytes % % Eosinophils % % Basophils % % Neutrophils # (1.3-7.7) k/uL Lymphocytes # (1.0-4.8) k/uL Monocytes # (0-1.0) k/uL Eosinophils # (0-0.7) k/uL Basophils # (0-0.2) k/uL PT 9.7 (9.0-12.0) sec INR 1.0 (<1.2) APTT 23.2 (22.0-30.0) sec Sodium (137-145) mmol/L Potassium (3.5-5.1) mmol/L Chloride (98-107) mmol/L Carbon Dioxide (22-30) mmol/L Anion Gap mmol/L BUN (7-17) mg/dL Creatinine (0.52-1.04) mg/dL Est GFR (CKD-EPI)AfAm (>60 ml/min/1.73 sqM) Est GFR (CKD-EPI)NonAf (>60 ml/min/1.73 sqM) Glucose (74-99) mg/dL Calcium (8.4-10.2) mg/dL Total Bilirubin (0.2-1.3) mg/dL AST (14-36) U/L ALT (9-52) U/L Alkaline Phosphatase (38-126) U/L Total Creatine Kinase (30-135) U/L CK-MB (CK-2) (0.0-2.4) ng/mL CK-MB (CK-2) Rel Index Troponin I (0.000-0.034) ng/mL Total Protein (6.3-8.2) g/dL Albumin (3.5-5.0) g/dL Disposition Clinical Impression: Paresthesia, Chest pain Disposition: HOME SELF-CARE Condition: Good Instructions: Paresthesia (ED) Additional Instructions: Please use medication as discussed. Please follow-up with family doctor in the next 2 days of symptoms have not improved. Please return to emergency room if the symptoms increase or worsen or for any other concerns. Is patient prescribed a controlled substance at d/c from ED?: No Referrals: Gilson Vargas MD [Primary Care Provider] - 1-2 days Maurilio Obando MD [STAFF PHYSICIAN] - 1-2 days Domenico Brooke MD [STAFF PHYSICIAN] - 1-2 days Time of Disposition: 14:10
[2017-12-29 12:46] LABS: Partial Thromboplastin Time 23.2 sec (22.0-30.0); Prothrombin Time 9.7 sec (9.0-12.0)
[2017-12-29 12:49] LABS: ALT 45 U/L (9-52); AST 30 U/L (14-36); Albumin 4.8 g/dL (3.5-5.0); Alkaline Phosphatase 39 U/L (38-126); Anion Gap 11 mmol/L; Blood Urea Nitrogen 7 mg/dL (7-17); Calcium 9.2 mg/dL (8.4-10.2); Carbon Dioxide 27 mmol/L (22-30); Chloride 104 mmol/L (98-107); Glucose 91 mg/dL (74-99); Potassium 3.9 mmol/L (3.5-5.1); Sodium 142 mmol/L (137-145); Total Bilirubin 1.2 mg/dL (0.2-1.3); Total Protein 7.7 g/dL (6.3-8.2)
[2017-12-29 12:56] LABS: Creatine Kinase 45 U/L (30-135)
[2017-12-29 13:10] LABS: Creatine Kinase MB <0.2 ng/mL (0.0-2.4); Troponin I <0.012 ng/mL (0.000-0.034)
[2017-12-29 13:40] VITALS: RESP 18
--- NOTE | 2017-12-29 13:45 | XR ---
EXAMINATION TYPE: XR chest 2V DATE OF EXAM: 12/29/2017 COMPARISON: 11/13/2017 HISTORY: 22-year-old female with chest pain and shortness of breath TECHNIQUE: PA and lateral views FINDINGS: The cardiomediastinal silhouette, aorta, and pulmonary vasculature are within normal limits. Lungs an d pleural spaces are clear. IMPRESSION: No acute cardiopulmonary process.
[2017-12-29 14:51] VITALS: BP 111/66; PULSE 83; TEMP 98.5
== END 2017-12-29 14:50 | disposition home or self-care (01) ==
LOC: EC 10:25
DX: R07.9 Chest pain, unspecified (principal); R20.2 Paresthesia of skin; Z85.71 Personal history of Hodgkin lymphoma; Z79.3 Long term (current) use of hormonal contraceptives; Z79.899 Other long term (current) drug therapy
CPT/HCPCS: 36415; 71046; 80053; 82550; 82553; 84484; 85025; 85610; 85730; 93005; 99285

== ENCOUNTER → 2018-01-23 | Outpatient (CLI) | payer OTHER ==
--- NOTE | 2018-01-25 23:01 | CT ---
EXAMINATION TYPE: CT brain wo/w con DATE OF EXAM: 01/23/2018 COMPARISON: None HISTORY: 22-year-old female complaining of headaches, changes in vision, left sided facial numbness, pain in ears. History of lymphoma TECHNIQUE: Examination was done in axial plane before and after IV contrast administration. 100 mL I sovue-300 was administered. Coronal and sagittal reconstructions performed. CT DLP: 1819.5 mGycm Automated exposure control for dose reduction was used. FINDINGS: There is no evidence of acute intracranial hemorrhage, acute ischemic changes, mass, mass-effect, or extra-axial fluid collection. There is no effacement of cerebral sulci or basal subarachnoid cister ns. There is no hydrocephalus. There is no midline shift. Schafer-white matter distinction is preserv ed. After IV contrast administration, no enhancing intracranial lesions are seen. Dural venous sinuses ar e patent. Paranasal sinuses and mastoid air cells are well pneumatized. Orbits and globes are intact. IMPRESSION: No acute intracranial abnormality or enhancing lesions.
== END | disposition home or self-care (01) ==
LOC: RADCTMAIN 17:27
PROVIDERS: ATTEND Internal Medicine
DX: H53.8 Other visual disturbances (principal); R51 Headache
CPT/HCPCS: 70470; Q9967

== ENCOUNTER → 2018-01-31 | Outpatient (CLI) | payer OTHER ==
--- NOTE | 2018-02-01 13:44 | PE ---
EXAMINATION TYPE: PET CT fusion skull to thigh DATE OF EXAM: 01/31/2018 COMPARISON: CT chest 11/15/2017, soft tissue neck 10/16/2017 Prior PET/CT: 12/28/2016 HISTORY: Lymphoma TECHNIQUE: Following the intravenous administration of 12.747 mCi of F-18 FDG, whole body images are performed from the skull base to the midthigh. Images are reviewed on the computer in the coronal, axial, and sagittal planes. Reconstructed rotating images are created on independent workstation and reviewed on the computer. A localization and attenuation correction CT is performed in conjunction with the PET scan. DLP: 226.8 cm mGycm SCAN: Subsequent Blood glucose: 96 mg/dL Average Mediastinum SUV: 1.29 Average Liver SUV: 2.4 FINDINGS: NECK: Some increase uptake is at the level of vocal cords likely related to phonation. THORAX: Mild increased uptake is within the region of the breast parenchymal tissue diffusely. This i s nonspecific. No abnormal uptake is within the mediastinum. ABDOMEN: No abnormal uptake PELVIS: No abnormal uptake OSSEOUS STRUCTURES: No abnormal uptake. LOCALIZATION CT: Ascending thoracic aorta at the level the main pulmonary artery is 2.3 cm. The main pulmonary artery the bifurcation is 2.1 cm. Some thymic tissue appears to remain present. Suspicious enlarged adenopathy within the mediastinum is not evident. No suspicious adenopathy is identified. COMPARISON: No significant interval changes evident. IMPRESSION: 1. No suspicious focal radiotracer accumulation to suggest metastatic or recurrent lymphoma.
== END | disposition home or self-care (01) ==
LOC: RADPETMAIN 08:38
PROVIDERS: ATTEND Internal Medicine Hematology & Oncology
DX: C81.18 Nodular sclerosis Hodgkin lymphoma, lymph nodes of multiple sites (principal)
CPT/HCPCS: 78815; A9552

== ENCOUNTER 2018-02-07 20:52 | Emergency (ER) | payer OTHER ==
[2018-02-07] MEDS ORDERED: KETOROLAC 30 MG/ML 1 ML VIAL IVP STA (22:08)
[2018-02-07] MEDS ORDERED: SODIUM CHLORIDE 0.9% 1,000 ML IV STA (22:08)
[2018-02-07 22:21] LABS: Basophils % (A) 1 %; Eosinophils # (A) 0.2 k/uL (0-0.7); Eosinophils % (A) 3 %; HCT 44.4 % (34.0-46.0); HGB 14.6 gm/dL (11.4-16.0); Lymphocytes # (A) 1.7 k/uL (1.0-4.8); Lymphocytes % (A) 23 %; MCH 31.1 pg (25.0-35.0); MCV 94.3 fL (80.0-100.0); Monocytes # (A) 0.3 k/uL (0-1.0); Monocytes % (A) 4 %; Neutrophils # (A) 4.9 k/uL (1.3-7.7); Neutrophils % (A) 68 %; Platelet Count 193 k/uL (150-450); RBC 4.71 m/uL (3.80-5.40); RDW 12.6 % (11.5-15.5); WBC 7.2 k/uL (3.8-10.6)
[2018-02-07 22:34] LABS: ALT 15 U/L (9-52); AST 21 U/L (14-36); Albumin 4.7 g/dL (3.5-5.0); Alkaline Phosphatase 39 U/L (38-126); Anion Gap 13 mmol/L; Blood Urea Nitrogen 13 mg/dL (7-17); Calcium 9.4 mg/dL (8.4-10.2); Carbon Dioxide 26 mmol/L (22-30); Chloride 103 mmol/L (98-107); Creatine Kinase 56 U/L (30-135); D-Dimer 0.43 mg/L FEU (<0.60); Glucose 96 mg/dL (74-99); Magnesium 2.3 mg/dL (1.6-2.3); Partial Thromboplastin Time 23.6 sec (22.0-30.0); Potassium 4.1 mmol/L (3.5-5.1); Prothrombin Time 9.8 sec (9.0-12.0); Sodium 142 mmol/L (137-145); Total Bilirubin 0.4 mg/dL (0.2-1.3); Total Protein 7.9 g/dL (6.3-8.2)
--- NOTE | 2018-02-07 22:36 | XR ---
EXAMINATION TYPE: XR chest 2V DATE OF EXAM: 02/07/2018 COMPARISON: 12/29/2017 HISTORY: Chest pain TECHNIQUE: Frontal and lateral views of the chest are obtained. FINDINGS: Heart and mediastinum are normal. Lungs are clear. Diaphragm is normal. Bony thorax appear s normal. IMPRESSION: Normal chest. No change.
[2018-02-07 22:46] LABS: Creatine Kinase MB <0.2 ng/mL (0.0-2.4); Troponin I <0.012 ng/mL (0.000-0.034)
--- NOTE | 2018-02-08 00:03 | ED ---
General Adult HPI - General Source: patient Mode of arrival: ambulatory Limitations: no limitations <Lilliam Castro - Last Filed: 02/08/18 04:01> <Soila Rangel - Last Filed: 02/10/18 01:05> - General Chief complaint: Upper Respiratory Infection Stated complaint: Sore throat Time Seen by Provider: 02/07/18 21:58 - History of Present Illness Initial comments: 22-year-old female patient presents to the emergency department today for evaluation of the sudden onset throat pain and sternal chest pain. Patient states she was driving in the car when she suddenly had pain in her throat and difficulty swallowing. She states that along with this she did also have pain to her substernal chest region. Patient states that the throat and chest are tender to the touch and make the pain worse. States that she has history of Hodgkin's lymphoma in remission for the last year. Patient states that she has been having a lot of bizarre symptoms over the last several months including intermittent chest pain, migraine headaches, tingling to her extremities, weakness, and dizziness. Patient states she has been evaluated by several specialists and they're unable to find a cause for her symptoms. She states that the throat pain is a new symptom for her. Patient denies any shortness of breath with this. She denies any rash, lip swelling, or tongue swelling. Denies being in contact with any new substances such as medications, foods, soaps, lotions, or creams. Patient denies any recent fever or chills. Denies any nausea or vomiting. Denies any heartburn. Patient denies any recent rash, abdominal pain, diarrhea, constipation, back pain, dizziness, weakness, hematuria, dysuria, urinary urgency, urinary frequency, headache, visual changes , or any other complaints. (Lilliam Castro) - Related Data Home Medications Medication Instructions Recorded Confirmed Cook-Linyah 1 tab PO DAILY 10/16/17 12/29/17 Colchicine 0.6 mg PO BID 12/29/17 12/29/17 Previous Rx's Medication Instructions Recorded predniSONE 20 mg PO DAILY 5 Days tab 12/29/17 Allergies Allergy/AdvReac Type Severity Reaction Status Date / Time No Known Allergies Allergy Verified 02/07/18 21:05 Review of Systems ROS Other: All systems not noted in ROS Statement are negative. <Lilliam Castro - Last Filed: 02/08/18 04:01> ROS Other: All systems not noted in ROS Statement are negative. <Soila Rangel P - Last Filed: 02/10/18 01:05> ROS Statement: Those systems with pertinent positive or pertinent negative responses have been documented in the HPI. Past Medical History Past Medical History: Cancer Additional Past Medical History / Comment(s): Hodgkin's lymphoma, please refer to the details in terms of the CAT scan of the chest abdomen and pelvis, left subclavion blood clot 10/16/17 History of Any Multi-Drug Resistant Organisms: None Reported Past Surgical History: No Surgical Hx Reported Additional Past Surgical History / Comment(s): LEFT AXILLARY NODE BX Past Anesthesia/Blood Transfusion Reactions: No Reported Reaction Past Psychological History: No Psychological Hx Reported Smoking Status: Never smoker Past Alcohol Use History: None Reported Past Drug Use History: None Reported - Past Family History Mother Family Medical History: No Reported History Additional Family Medical History / Comment(s): 2 grandparents with cancer Father Family Medical History: No Reported History Brother(s) Family Medical History: No Reported History Daughter(s) Family Medical History: No Reported History Son(s) Family Medical History: No Reported History <Lilliam Castro M - Last Filed: 02/08/18 04:01> General Exam Limitations: no limitations General appearance: alert, in no apparent distress, other (This is a well- developed, well-nourished adult female patient in no acute distress. Vital signs upon presentation are temperature 98.4F, pulse 85, respirations 18, blood pressure 133/78, pulse ox 99% on room air.) Eye exam: Present: normal appearance, PERRL, EOMI. Absent: scleral icterus, conjunctival injection, periorbital swelling Respiratory exam: Present: normal lung sounds bilaterally, chest wall tenderness (Over the sternum). Absent: respiratory distress, wheezes, rales, rhonchi, stridor Cardiovascular Exam: Present: regular rate, normal rhythm, normal heart sounds. Absent: systolic murmur, diastolic murmur, rubs, gallop, clicks GI/Abdominal exam: Present: soft, tenderness (Mild midepigastric tenderness), normal bowel sounds. Absent: distended, guarding, rebound, rigid Neurological exam: Present: alert, oriented X3, CN II-XII intact Psychiatric exam: Present: normal affect, normal mood Skin exam: Present: warm, dry, intact, normal color. Absent: rash <Lilliam Castro - Last Filed: 02/08/18 04:01> Vital Signs 02/07/18 02/07/18 02/07/18 21:02 21:04 22:04 Temperature 98.4 F Pulse Rate 85 78 78 Respiratory 18 18 18 Rate Blood Pressure 133/78 126/79 117/76 O2 Sat by Pulse 99 97 100 Oximetry 02/07/18 02/08/18 02/08/18 22:58 00:00 00:54 Temperature Pulse Rate 77 76 71 Respiratory 20 18 20 Rate Blood Pressure 121/80 116/60 99/60 O2 Sat by Pulse 97 99 99 Oximetry 02/08/18 02/08/18 01:00 01:46 Temperature 97.9 F Pulse Rate 77 71 Respiratory 20 20 Rate Blood Pressure 112/80 112/73 O2 Sat by Pulse 100 98 Oximetry Medical Decision Making - Lab Data Result diagrams: 02/07/18 21:43 02/07/18 21:43 - Radiology Data Radiology results: report reviewed, image reviewed <Lilliam Castro - Last Filed: 02/08/18 04:01> - Lab Data Result diagrams: 02/07/18 21:43 02/07/18 21:43 <Soila Rangel - Last Filed: 02/10/18 01:05> - Medical Decision Making 22-year-old female patient presented to the emergency department today for evaluation of throat and chest pain. Physical examination is relatively unremarkable. Patient did have reproducible chest pain upon palpation. Vital signs are stable. EKG showed normal sinus rhythm. Labs reviewed and were unremarkable. My attending Dr. Rangel was in to reevaluate the patient. Symptoms are consistent with atypical chest pain and possible costochondritis. Patient does follow with a broom maker outpatient. She is instructed to follow -up with her primary care physician and the broom maker. Return parameters were discussed in detail. She verbalizes understanding and agrees with this plan. (Lilliam Castro) I personally saw and evaluated the patient, upon my evaluation the patient was sitting comfortably in the ER [facility], she was drinking water. When I evaluated her she states that she was feeling better and is eager for charge home. The patient was well-appearing, nontoxic. Physical exam with no acute findings. Questions pertaining to care were answered the best my ability, patient is scheduled to follow-up with her primary care physician later this week. Return parameters were discussed the patient was discharged home in stable condition. (Soila Rangel) - Lab Data Lab Results 02/07/18 02/07/18 02/07/18 Range/Units 21:43 21:43 21:43 WBC 7.2 (3.8-10.6) k/uL RBC 4.71 (3.80-5.40) m/uL Hgb 14.6 (11.4-16.0) gm/dL Hct 44.4 (34.0-46.0) % MCV 94.3 (80.0-100.0) fL MCH 31.1 (25.0-35.0) pg MCHC 33.0 (31.0-37.0) g/dL RDW 12.6 (11.5-15.5) % Plt Count 193 (150-450) k/uL Neutrophils % 68 % Lymphocytes % 23 % Monocytes % 4 % Eosinophils % 3 % Basophils % 1 % Neutrophils # 4.9 (1.3-7.7) k/uL Lymphocytes # 1.7 (1.0-4.8) k/uL Monocytes # 0.3 (0-1.0) k/uL Eosinophils # 0.2 (0-0.7) k/uL Basophils # 0.0 (0-0.2) k/uL PT (9.0-12.0) sec INR (<1.2) APTT (22.0-30.0) sec D-Dimer (<0.60) mg/L FEU Sodium 142 (137-145) mmol/L Potassium 4.1 (3.5-5.1) mmol/L Chloride 103 (98-107) mmol/L Carbon Dioxide 26 (22-30) mmol/L Anion Gap 13 mmol/L BUN 13 (7-17) mg/dL Creatinine 0.72 (0.52-1.04) mg/dL Est GFR (CKD-EPI)AfAm >90 (>60 ml/min/1.73 sqM) Est GFR (CKD-EPI)NonAf >90 (>60 ml/min/1.73 sqM) Glucose 96 (74-99) mg/dL Calcium 9.4 (8.4-10.2) mg/dL Magnesium 2.3 (1.6-2.3) mg/dL Total Bilirubin 0.4 (0.2-1.3) mg/dL AST 21 (14-36) U/L ALT 15 (9-52) U/L Alkaline Phosphatase 39 (38-126) U/L Total Creatine Kinase 56 (30-135) U/L CK-MB (CK-2) <0.2 (0.0-2.4) ng/mL CK-MB (CK-2) Rel Index Troponin I <0.012 (0.000-0.034) ng/mL Total Protein 7.9 (6.3-8.2) g/dL Albumin 4.7 (3.5-5.0) g/dL 02/07/18 Range/Units 21:43 WBC (3.8-10.6) k/uL RBC (3.80-5.40) m/uL Hgb (11.4-16.0) gm/dL Hct (34.0-46.0) % MCV (80.0-100.0) fL MCH (25.0-35.0) pg MCHC (31.0-37.0) g/dL RDW (11.5-15.5) % Plt Count (150-450) k/uL Neutrophils % % Lymphocytes % % Monocytes % % Eosinophils % % Basophils % % Neutrophils # (1.3-7.7) k/uL Lymphocytes # (1.0-4.8) k/uL Monocytes # (0-1.0) k/uL Eosinophils # (0-0.7) k/uL Basophils # (0-0.2) k/uL PT 9.8 (9.0-12.0) sec INR 1.0 (<1.2) APTT 23.6 (22.0-30.0) sec D-Dimer 0.43 (<0.60) mg/L FEU Sodium (137-145) mmol/L Potassium (3.5-5.1) mmol/L Chloride (98-107) mmol/L Carbon Dioxide (22-30) mmol/L Anion Gap mmol/L BUN (7-17) mg/dL Creatinine (0.52-1.04) mg/dL Est GFR (CKD-EPI)AfAm (>60 ml/min/1.73 sqM) Est GFR (CKD-EPI)NonAf (>60 ml/min/1.73 sqM) Glucose (74-99) mg/dL Calcium (8.4-10.2) mg/dL Magnesium (1.6-2.3) mg/dL Total Bilirubin (0.2-1.3) mg/dL AST (14-36) U/L ALT (9-52) U/L Alkaline Phosphatase (38-126) U/L Total Creatine Kinase (30-135) U/L CK-MB (CK-2) (0.0-2.4) ng/mL CK-MB (CK-2) Rel Index Troponin I (0.000-0.034) ng/mL Total Protein (6.3-8.2) g/dL Albumin (3.5-5.0) g/dL - Radiology Data Two-view x-ray of the chest is obtained. Heart mediastinum are normal. Lungs are clear. Diaphragm is normal. Bony thorax appears normal. Impression by Dr. Nathan shows normal chest with no change. (Lilliam Castro) Disposition <Lilliam Castro - Last Filed: 02/08/18 04:01> Is patient prescribed a controlled substance at d/c from ED?: No Time of Disposition: 01:34 <Soila Rangel - Last Filed: 02/10/18 01:05> Clinical Impression: Atypical chest pain, Costochondral chest pain, Pharyngitis Disposition: HOME SELF-CARE Condition: Stable Instructions: Costochondritis (ED), Upper Respiratory Infection (ED) Referrals: Gilson Vargas MD [Primary Care Provider] - 1-2 days
[2018-02-08 00:55] VITALS: RESP 20
[2018-02-08 01:47] VITALS: BP 112/73; PULSE 71; TEMP 97.9
== END 2018-02-08 01:47 | disposition home or self-care (01) ==
LOC: EC 20:52
DX: J02.9 Acute pharyngitis, unspecified (principal); R07.89 Other chest pain; G43.909 Migraine, unspecified, not intractable, without status migrainosus; R20.2 Paresthesia of skin; R53.1 Weakness; R42 Dizziness and giddiness; Z79.3 Long term (current) use of hormonal contraceptives; Z79.899 Other long term (current) drug therapy
CPT/HCPCS: 36415; 93005; 85379; 80053; 82550; 82553; 83735; 84484; 85025; 85610; 85730; 71046; 99284; 96374; 96361 ×2; J1885

== ENCOUNTER → 2018-10-31 | Outpatient (CLI) | payer OTHER ==
--- NOTE | 2018-11-02 10:11 | PE ---
EXAMINATION TYPE: PET CT fusion skull to thigh DATE OF EXAM: 10/31/2018 COMPARISON: 01/31/2018 and 12/28/2016 HISTORY: History of lymphoma. Follow-up exam. Surveillance. History of chemotherapy on November 07, 2016. TECHNIQUE: Following the intravenous administration of 10.781 mCi of F-18 FDG, whole body images are performed from the skull base to the midthigh. Images are reviewed on the computer in the coronal, axial, and sagittal planes. Reconstructed rotating images are created on independent workstation and reviewed on the computer. A localization and attenuation correction CT is performed in conjunction with the PET scan. SCAN: Subsequent FINDINGS: Mediastinal background: 1.23 Abdominal background: 1.61 SKULL BASE AND NECK: Tonsillar pillars demonstrate hypermetabolic activity measuring 5.09 SUV on the left and 4.9 SUV on the right. Mandible activity has a maximum SUV of 3.95 towards the apex and 4.77 of the right mandible, possibly related to dental disease. CHEST, MEDIASTINUM, AND HILAR REGION: No suspicious hypermetabolic activity. ABDOMEN AND PELVIS: The spleen is hypermetabolic with a maximum SUV of 2.18 globally with no focal le josé manuel appreciated. OSSEOUS STRUCTURES: No suspicious hypermetabolic activity. OTHER CT: Minimal residual thymic tissue is appreciated. Heart is nonenlarged. No significant coronar y artery calcifications. Thyroid gland is heterogenous with the left thyroid lobe containing dystroph ic appearing calcifications. There is mild rightward nasal septal deviation. Paranasal sinuses are ov erall well aerated. Osseous structures appear intact. Very minimal bibasilar atelectasis is noted. Th e spleen is enlarged in craniocaudal dimension. The unenhanced viscera appear grossly unremarkable. N o adenopathy by size criteria in the chest, abdomen, and or pelvis. No dilated bowel. Right ovarian f ollicles are incidentally seen. IMPRESSION: 1. Hypermetabolic activity is seen of the palatine tonsils, likely physiologic however direct visuali zation could confirm. 2. Mild hypermetabolic activity globally of the enlarged spleen raising suspicion for lymphomatous sp lenic involvement. 3. No new adenopathy. No hypermetabolic adenopathy. 4. Multifocal mandibular uptake likely relates to dental disease.
== END | disposition home or self-care (01) ==
LOC: RADPETMAIN 08:02
PROVIDERS: ATTEND Internal Medicine Hematology & Oncology
DX: C81.18 Nodular sclerosis Hodgkin lymphoma, lymph nodes of multiple sites (principal); R16.1 Splenomegaly, not elsewhere classified
CPT/HCPCS: 78815; A9552

== ENCOUNTER → 2019-01-30 | Outpatient (CLI) | payer OTHER | END | disposition home or self-care (01) | LOC: RADPETMAIN 08:17 | PROVIDERS: ATTEND Internal Medicine Hematology & Oncology | DX: Z53.9 Procedure and treatment not carried out, unspecified reason (principal) ==

== ENCOUNTER → 2019-02-17 | Outpatient (CLI) | payer OTHER ==
--- NOTE | 2019-02-17 13:30 | CT ---
EXAMINATION TYPE: CT ChestAbdPelvis w con DATE OF EXAM: 02/17/2019 COMPARISON: PET CT October 31, 2018 and older studies back to PET CT May 25, 2016. HISTORY: follow up to lymphoma CT DLP: 511.1 mGycm. Automated Exposure Control for Dose Reduction was Utilized. CONTRAST: CT scan of the thorax, abdomen and pelvis is performed with IV Contrast, patient injected with 100 mL of Isovue 300. FINDINGS: LUNGS: The lungs are grossly clear, there is no concerning parenchymal mass or nodule identified. T here is no pleural effusion or pneumothorax seen. The tracheobronchial tree is patent. MEDIASTINUM: There are no new greater than 1 cm hilar or mediastinal lymph nodes. No cardiomegaly o r pericardial effusion is seen. Abnormal soft tissue anterior superior mediastinum there are axial i mage 20 remains present without significant interval change from most recent PET CT and felt to refle ct treated neoplasm. OTHER: No additional significant abnormality is seen. LIVER/GB: Liver size is stable and upper limits of normal. PANCREAS: No significant abnormality is seen. SPLEEN: Stable mild splenomegaly. ADRENALS: No significant abnormality is seen. KIDNEYS: No significant abnormality is seen. BOWEL: No significant abnormality is seen. GENITAL ORGANS: Retroverted uterus is seen. Both ovaries are seen and within normal limits in size an d the adnexa. LYMPH NODES: No greater than 1cm abdominal or pelvic lymph nodes are appreciated. OSSEOUS STRUCTURES: No significant abnormality is seen. OTHER: No significant additional abnormality is seen. IMPRESSION: Stable mild splenomegaly. Stable abnormal soft tissue anterosuperior mediastinum. No new mass or adenopathy.
== END | disposition home or self-care (01) ==
LOC: RADCTMAIN 10:03
PROVIDERS: ATTEND Internal Medicine Hematology & Oncology
DX: R16.1 Splenomegaly, not elsewhere classified (principal); R93.89 Abnormal findings on diagnostic imaging of other specified body structures; C81.18 Nodular sclerosis Hodgkin lymphoma, lymph nodes of multiple sites
CPT/HCPCS: 71260; 74177; Q9967 ×2

== ENCOUNTER → 2019-06-07 | Outpatient (CLI) | payer OTHER ==
--- NOTE | 2019-06-07 08:58 | CT ---
EXAMINATION TYPE: CT sinus wo con DATE OF EXAM: 06/07/2019 COMPARISON: CT brain January 23, 2018 HISTORY: Chronic sinusitis per order. Headaches with dizziness and vision changes per patient. Sympto ms for 6 months including facial pain and stuffy nose. CT DLP: 638.90 mGycm. Automated Exposure Control for Dose Reduction was Utilized. TECHNIQUE: CT scan of the sinuses is performed without contrast, axial images are obtained, coronal r eformatted images are also reviewed. FINDINGS: There is 8 mm mucous retention cyst or polyp in the posterior lateral right maxillary sinus axial image 12. Smaller roughly 4 mm mucous retention cyst or polyp medial left maxillary sinusitis measures 17 nearly antrum. Remainder paranasal sinuses are clear on current study. No suspicious opa cification or air-fluid levels. The ostiomeatal complex is patent bilaterally on coronal image 19. Na cecilia septum is deviated to right of midline inferiorly. Visualized portion of mastoid air cells show no abnormal opacification. The globes are intact bilate rally. Visualized brain parenchyma is within normal limits. IMPRESSION: No acute sinusitis. Mild chronic bilateral maxillary sinus disease. Ostiomeatal complex i s patent bilaterally.
== END | disposition home or self-care (01) ==
LOC: RADCTMAIN 08:21
PROVIDERS: ATTEND Otolaryngology
DX: J32.0 Chronic maxillary sinusitis (principal)
CPT/HCPCS: 70486

== ENCOUNTER 2021-10-06 16:49 | Emergency (ER) | payer OTHER ==
--- NOTE | 2021-10-06 18:15 | ED ---
General Adult HPI - General Chief complaint: Chest Pain Stated complaint: Chest pressure,burning Time Seen by Provider: 10/06/21 18:14 Source: patient Mode of arrival: ambulatory Limitations: no limitations - History of Present Illness Initial comments: Patient presents to the ED with her mother for evaluation. Patient states that she awoke at about 4 AM this morning with diffuse chest "heaviness", a mild headache, bodyaches and dry mouth. Patient states that her symptoms have persisted all day, and that is why she has come to the ED. Patient also reports having a "burning" sensation in both of her arms. Patient states that she has had similar symptoms multiple times in the past, and she has never been told what her symptoms are from. Patient states that she is currently being treated for anxiety and depression. Patient denies trauma or injury, fever or chills, focal numbness/weakness/neuro deficit, visual changes, neck/jaw pain, back pain, pleuritic pain, cough or cold symptoms, dyspnea, palpitations, dizziness, nausea/vomiting/diaphoresis, abdominal pain, dysuria or urinary symptoms, leg or calf swelling or pain, or any other symptoms or complaints. Patient states that she is in remission for Hodgkin's disease, and she is not currently under any treatment for her Hodgkin's disease. Patient denies tobacco or OCP use. - Related Data Home Medications Medication Instructions Recorded Confirmed DULoxetine HCL [Cymbalta] 30 mg PO DAILY 10/06/21 10/06/21 Allergies Allergy/AdvReac Type Severity Reaction Status Date / Time No Known Allergies Allergy Verified 10/06/21 19:21 Review of Systems ROS Statement: Those systems with pertinent positive or pertinent negative responses have been documented in the HPI. ROS Other: All systems not noted in ROS Statement are negative. Past Medical History Past Medical History: Cancer Additional Past Medical History / Comment(s): Hodgkin's [id number]; in remission ; left subclavion blood clot 10/16/17 History of Any Multi-Drug Resistant Organisms: None Reported Past Surgical History: No Surgical Hx Reported Additional Past Surgical History / Comment(s): LEFT AXILLARY NODE BX; port inserted and removed; "fluid drained from aroung heart" Past Anesthesia/Blood Transfusion Reactions: No Reported Reaction Past Psychological History: No Psychological Hx Reported Smoking Status: Never smoker Past Alcohol Use History: None Reported Past Drug Use History: None Reported - Past Family History Mother Family Medical History: No Reported History Additional Family Medical History / Comment(s): 2 grandparents with cancer Father Family Medical History: No Reported History Brother(s) Family Medical History: No Reported History Daughter(s) Family Medical History: No Reported History Son(s) Family Medical History: No Reported History General Exam Limitations: no limitations General appearance: alert, in no apparent distress Head exam: Present: atraumatic, normocephalic Eye exam: Present: normal appearance, EOMI ENT exam: Present: mucous membranes moist Neck exam: Present: other (Trachea is in midline). Absent: tenderness, meningismus Respiratory exam: Present: normal lung sounds bilaterally. Absent: respiratory distress, wheezes, rales, rhonchi, stridor, chest wall tenderness Cardiovascular Exam: Present: regular rate, normal rhythm, normal heart sounds, other (Normal radial pulses bilaterally) GI/Abdominal exam: Present: soft. Absent: distended, tenderness, guarding Extremities exam: Present: other (Negative Homans sign bilaterally). Absent: tenderness, pedal edema, calf tenderness Neurological exam: Present: alert, oriented X3, CN II-XII intact. Absent: motor sensory deficit Psychiatric exam: Present: normal affect, normal mood Skin exam: Present: warm, dry, intact, normal color Course Vital Signs 10/06/21 10/06/21 17:23 21:40 Temperature 98.2 F Pulse Rate 116 H 80 Respiratory 18 16 Rate Blood Pressure 113/72 113/81 O2 Sat by Pulse 99 98 Oximetry - Reevaluation(s) Reevaluation #1: 10/06/21 21:50 Patient denies development of any new symptoms while in the ED. Patient remains alert and breathing comfortably. Patient and mother are aware the patient's test results, and they both feel comfortable with the patient being discharged home at this time. Patient was counseled about chest pain, and she was clearly explained return and follow-up instructions. Patient was instructed to follow up closely with her primary care provider. Patient feels comfortable with this plan. EKG Findings - EKG Comments: EKG Findings:: Normal sinus rhythm, ventricular rate of 84 bpm, no ectopy, normal [place] and QRS intervals, normal QT interval, no ST or T-wave abnormality Medical Decision Making - Medical Decision Making Patient's EKG, chest x-ray and labs are all fairly unremarkable, including a negative d-dimer and negative troponin. Patient is alert and breathing comfortably with a normal room air oxygen saturation. I do not suspect an emergent medical condition at this time. Will discharge patient home with her mother at this time. Patient and mother both feel comfortable with this plan. - Lab Data Result diagrams: 10/06/21 19:03 10/06/21 19:03 Lab Results 10/06/21 10/06/21 10/06/21 Range/Units 19:03 19:03 19:03 WBC 6.1 (3.8-10.6) k/uL RBC 4.58 (3.80-5.40) m/uL Hgb 14.3 (11.4-16.0) gm/dL Hct 42.6 (34.0-46.0) % MCV 93.1 (80.0-100.0) fL MCH 31.1 (25.0-35.0) pg MCHC 33.4 (31.0-37.0) g/dL RDW 12.8 (11.5-15.5) % Plt Count 185 (150-450) k/uL MPV 8.7 Neutrophils % 59 % Lymphocytes % 34 % Monocytes % 4 % Eosinophils % 1 % Basophils % 1 % Neutrophils # 3.6 (1.3-7.7) k/uL Lymphocytes # 2.1 (1.0-4.8) k/uL Monocytes # 0.3 (0-1.0) k/uL Eosinophils # 0.1 (0-0.7) k/uL Basophils # 0.0 (0-0.2) k/uL D-Dimer <0.17 (<0.60) mg/L FEU Sodium 136 L (137-145) mmol/L Potassium 3.8 (3.5-5.1) mmol/L Chloride 101 (98-107) mmol/L Carbon Dioxide 28 (22-30) mmol/L Anion Gap 7 mmol/L BUN 11 (7-17) mg/dL Creatinine 0.65 (0.52-1.04) mg/dL Est GFR (CKD-EPI)AfAm >90 (>60 ml/min/1.73 sqM) Est GFR (CKD-EPI)NonAf >90 (>60 ml/min/1.73 sqM) Glucose 100 H (74-99) mg/dL Calcium 8.8 (8.4-10.2) mg/dL Total Bilirubin 1.2 (0.2-1.3) mg/dL AST 19 (14-36) U/L ALT 14 (4-34) U/L Alkaline Phosphatase 47 (38-126) U/L Troponin I (0.000-0.034) ng/mL Total Protein 7.5 (6.3-8.2) g/dL Albumin 4.7 (3.5-5.0) g/dL HCG, Qual Not Detected 10/06/21 Range/Units 19:03 WBC (3.8-10.6) k/uL RBC (3.80-5.40) m/uL Hgb (11.4-16.0) gm/dL Hct (34.0-46.0) % MCV (80.0-100.0) fL MCH (25.0-35.0) pg MCHC (31.0-37.0) g/dL RDW (11.5-15.5) % Plt Count (150-450) k/uL MPV Neutrophils % % Lymphocytes % % Monocytes % % Eosinophils % % Basophils % % Neutrophils # (1.3-7.7) k/uL Lymphocytes # (1.0-4.8) k/uL Monocytes # (0-1.0) k/uL Eosinophils # (0-0.7) k/uL Basophils # (0-0.2) k/uL D-Dimer (<0.60) mg/L FEU Sodium (137-145) mmol/L Potassium (3.5-5.1) mmol/L Chloride (98-107) mmol/L Carbon Dioxide (22-30) mmol/L Anion Gap mmol/L BUN (7-17) mg/dL Creatinine (0.52-1.04) mg/dL Est GFR (CKD-EPI)AfAm (>60 ml/min/1.73 sqM) Est GFR (CKD-EPI)NonAf (>60 ml/min/1.73 sqM) Glucose (74-99) mg/dL Calcium (8.4-10.2) mg/dL Total Bilirubin (0.2-1.3) mg/dL AST (14-36) U/L ALT (4-34) U/L Alkaline Phosphatase (38-126) U/L Troponin I <0.012 (0.000-0.034) ng/mL Total Protein (6.3-8.2) g/dL Albumin (3.5-5.0) g/dL HCG, Qual - Radiology Data Chest x-ray: Normal chest. No change. Disposition Clinical Impression: Chest pain Disposition: HOME SELF-CARE Condition: Stable Instructions (If sedation given, give patient instructions): Chest Pain (ED) Additional Instructions: Return to the ER immediately should you develop new or worsening pain, shortness of breath, feeling dizzy or faint, a fever, vomiting, or new or worsening symptoms. Follow up closely with your primary care provider. Is patient prescribed a controlled substance at d/c from ED?: No Referrals: Rodger Arce MD [Primary Care Provider] - 1-2 days Time of Disposition: 21:51
[2021-10-06] MEDS ORDERED: MAG HYDROX/AL HYDROX/SIMETH 30 ML, HYOSCYAMINE ELIXIR 10 ML, LIDOCAINE VISCOUS 2% 10 ML PO STA ×3 (18:20)
[2021-10-06 19:09] LABS: Basophils % (A) 1 %; Eosinophils # (A) 0.1 k/uL (0-0.7); Eosinophils % (A) 1 %; HCT 42.6 % (34.0-46.0); HGB 14.3 gm/dL (11.4-16.0); Lymphocytes # (A) 2.1 k/uL (1.0-4.8); Lymphocytes % (A) 34 %; MCH 31.1 pg (25.0-35.0); MCHC 33.4 g/dL (31.0-37.0); MCV 93.1 fL (80.0-100.0); Mean Platelet Volume 8.7; Monocytes # (A) 0.3 k/uL (0-1.0); Monocytes % (A) 4 %; Neutrophils # (A) 3.6 k/uL (1.3-7.7); Neutrophils % (A) 59 %; Platelet Count 185 k/uL (150-450); RBC 4.58 m/uL (3.80-5.40); RDW 12.8 % (11.5-15.5); WBC 6.1 k/uL (3.8-10.6)
[2021-10-06 19:23] LABS: ALT 14 U/L (4-34); AST 19 U/L (14-36); African American GFR (CKD) >90 (>60 ml/min/1.73 sqM); Albumin 4.7 g/dL (3.5-5.0); Alkaline Phosphatase 47 U/L (38-126); Anion Gap 7 mmol/L; Blood Urea Nitrogen 11 mg/dL (7-17); Calcium 8.8 mg/dL (8.4-10.2); Carbon Dioxide 28 mmol/L (22-30); Chloride 101 mmol/L (98-107); Glucose 100 mg/dL (74-99); Non-African American GFR(CKD) >90 (>60 ml/min/1.73 sqM); Potassium 3.8 mmol/L (3.5-5.1); Sodium 136 mmol/L (137-145); Total Bilirubin 1.2 mg/dL (0.2-1.3); Total Protein 7.5 g/dL (6.3-8.2)
[2021-10-06 19:26] LABS: HCG,Qualitative Serum Not Detected
--- NOTE | 2021-10-06 19:57 | XR ---
EXAMINATION TYPE: XR chest 2V DATE OF EXAM: 10/06/2021 COMPARISON: 02/07/2018 HISTORY: Pain TECHNIQUE: 2 views FINDINGS: Heart and mediastinum are normal. Lungs are clear. Diaphragm is normal. Bony thorax is inta ct. IMPRESSION: Normal chest. No change.
[2021-10-06 21:40] VITALS: RESP 16
[2021-10-06 22:07] VITALS: BP 115/80; PULSE 89; TEMP 97.4
== END 2021-10-06 22:09 | disposition home or self-care (01) ==
LOC: EC 16:49
DX: R07.89 Other chest pain (principal)
CPT/HCPCS: 36415; 71046; 80053; 84484; 84703; 85025; 85379; 93005; 99285

== ENCOUNTER → 2021-10-19 | Outpatient (CLI) | payer OTHER ==
--- NOTE | 2021-10-19 10:20 | MR ---
EXAMINATION TYPE: MR brain wo/w con DATE OF EXAM: 10/19/2021 COMPARISON: CT brain 01/23/2018 HISTORY: Blurred vision, headache, HX of Hodgkins Lymphoma, H 53.8, R 20.0 TECHNIQUE: Multiplanar, multisequence images of the brain and brainstem is performed without and with IV contras t, utilizing 5ml mL intravenous Gadavist . FINDINGS: Diffusion weighted images demonstrate no evidence of a recent infarct or other diffusion ab normality. There is no extra-axial fluid collection or significant white matter signal abnormality. The ventricular system and cisternal spaces are normal in size and appearance. The brain volume is age appropriate. Midline structures demonstrate normal morphology, minimal inferior cerebellar tonsillar ectopia noted . The craniocervical junction appears within normal limits. Post contrast images demonstrate no abn ormal enhancement. The dural venous sinuses appear patent. The visualized sinuses are remarkable for inflammatory change, possible mucus retention cyst or polyp within the right maxillary sinus, and muc osal disease within the ethmoid air cells and the globes are intact. IMPRESSION: Brain signal is maintained. 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 Mild sinus disease.
== END | disposition home or self-care (01) ==
LOC: RADMRIMAIN 08:24
PROVIDERS: ATTEND Physician Assistant
DX: J32.9 Chronic sinusitis, unspecified (principal); Z85.71 Personal history of Hodgkin lymphoma
CPT/HCPCS: 70553; A9585

== ENCOUNTER → 2022-04-09 | Outpatient (CLI) | payer OTHER ==
--- NOTE | 2022-04-09 09:33 | CT ---
EXAMINATION TYPE: CT sinus wo con DATE OF EXAM: 04/09/2022 COMPARISON: 06/07/2019 HISTORY: chronic sinusitis CT DLP: 712.3 mGycm. Automated Exposure Control for Dose Reduction was Utilized. TECHNIQUE: CT scan of the sinuses is performed without contrast, axial images are obtained, coronal r eformatted images are also reviewed. FINDINGS: The paranasal sinuses including the frontal, ethmoid, sphenoid, and maxillary sinuses bila terally are well-aerated without abnormal opacification. There are two small 1 cm or less is retentio n cyst or polyp within the right maxillary antrum. Very mild mucosal thickening of the ethmoid air c ells. There is a nasal septal deviation. The ostiomeatal complex is patent bilaterally on the coronal images. Visualized portion of mastoid air cells show no abnormal opacification. The globes are intact bilate rally. Dental artifact noted. There are low-lying cerebellar tonsils. IMPRESSION: 1. Nasal septal deviation with mild chronic ethmoidal sinusitis. 2. There are two small mucous retention cyst or polyps are seen within right maxillary sinus. 3. Low-lying cerebellar tonsils. This can be associated with Chiari malformation and has been reporte d by prior MRI 10/19/2021.
== END | disposition home or self-care (01) ==
LOC: RADCTMAIN 08:47
PROVIDERS: ATTEND Otolaryngology
DX: J32.2 Chronic ethmoidal sinusitis (principal); J34.2 Deviated nasal septum
CPT/HCPCS: 70486

== ENCOUNTER 2022-08-17 03:50 | Emergency (ER) | payer OTHER ==
[2022-08-17] MEDS ORDERED: SODIUM CHLORIDE 0.9% 1,000 ML IV STA (04:10)
[2022-08-17] MEDS ORDERED: LORazepam 1 MG TAB PO STA (04:10)
[2022-08-17] MEDS ORDERED: ASPIRIN 81 MG PO STA (04:10)
[2022-08-17] MEDS ORDERED: ONDANSETRON 4 MG/2 ML VIAL IVP STA (04:10)
[2022-08-17] MEDS ORDERED: KETOROLAC 15 MG/ML 1 ML VIAL IVP STA (04:13)
[2022-08-17 05:13] LABS: Basophils % (A) 1 %; Eosinophils # (A) 0.1 k/uL (0-0.7); Eosinophils % (A) 2 %; HCT 38.6 % (34.0-46.0); HGB 13.3 gm/dL (11.4-16.0); Lymphocytes # (A) 1.3 k/uL (1.0-4.8); Lymphocytes % (A) 29 %; MCH 31.5 pg (25.0-35.0); MCHC 34.5 g/dL (31.0-37.0); MCV 91.4 fL (80.0-100.0); Mean Platelet Volume 8.3; Monocytes # (A) 0.2 k/uL (0-1.0); Monocytes % (A) 5 %; Neutrophils # (A) 2.8 k/uL (1.3-7.7); Neutrophils % (A) 61 %; Platelet Count 193 k/uL (150-450); RBC 4.22 m/uL (3.80-5.40); RDW 12.7 % (11.5-15.5); WBC 4.6 k/uL (3.8-10.6)
[2022-08-17 05:21] LABS: HCG,Qualitative Serum Not Detected
[2022-08-17 05:25] LABS: ALT 16 U/L (4-34); AST 20 U/L (14-36); African American GFR (CKD) >90 (>60 ml/min/1.73 sqM); Albumin 4.4 g/dL (3.5-5.0); Alkaline Phosphatase 51 U/L (38-126); Anion Gap 6 mmol/L; Blood Urea Nitrogen 12 mg/dL (7-17); Calcium 8.6 mg/dL (8.4-10.2); Carbon Dioxide 29 mmol/L (22-30); Chloride 104 mmol/L (98-107); Glucose 112 mg/dL (74-99); Lipase 123 U/L (23-300); Magnesium 2.2 mg/dL (1.6-2.3); Non-African American GFR(CKD) >90 (>60 ml/min/1.73 sqM); Potassium 3.8 mmol/L (3.5-5.1); Sodium 139 mmol/L (137-145); Total Bilirubin 0.5 mg/dL (0.2-1.3)
[2022-08-17 05:27] LABS: Partial Thromboplastin Time 25.4 sec (22.0-30.0); Prothrombin Time 10.2 sec (9.0-12.0)
--- NOTE | 2022-08-17 05:27 | XR ---
EXAMINATION TYPE: XR chest 2V DATE OF EXAM: 08/17/2022 COMPARISON: 10/06/2021 HISTORY: Chest pain TECHNIQUE: FINDINGS: Heart is normal. Lungs are clear. Diaphragm is normal. Bony thorax is intact. IMPRESSION: Normal chest. No change
[2022-08-17 05:45] VITALS: BP 99/64; PULSE 76; RESP 12; TEMP 98.2
[2022-08-17 06:07] LABS: Bacteria,Urine Rare /hpf; Hyaline Casts,Urine 1 /lpf (0-2); Mucus,Urine Occasional /hpf; RBC,Urine 1 /hpf (0-5); Squamous Epithelial Cell,Urine 11 /hpf (0-4); WBC,Urine 3 /hpf (0-5)
--- NOTE | 2022-08-17 06:35 | ED ---
General Adult HPI - General Chief complaint: Nausea/Vomiting/Diarrhea Stated complaint: atypical chest pain Time Seen by Provider: 08/17/22 04:13 Source: patient, RN notes reviewed, old records reviewed Mode of arrival: ambulatory Limitations: no limitations - History of Present Illness Initial comments: Patient is a 27-year-old female who presents to emergency department with multiple complaints. Patient has been having chronic periods of weakness since Friday or Friday of this week. Has had these episodes before. She has what sounds like near syncopal episodes. Has received thorough workups in the past that have been negative. Patient also has been having chronic chest pressure, tightness sensation associated with abdominal discomfort and then has episodes of feeling warm, hot and episodes of diarrhea. Unknown if all these are linked. States she also feels lightheaded and weak occasionally. She presents due to these multiple complaints. She is currently resting comfortably in no obvious acute distress. No history of blood clots or diagnosed disease. Does have a history of Hodgkin's lymphoma that is in remission. Has no other acute complaints at this time. Presents over concern for her current symptoms. States she may have anxiety but has no formal diagnosis.Symptoms have been ongoing for days.Patient's primary concern seems to be the chest pain she is having. She does have a history of these what sounds like near fainting spells that have been thoroughly worked up by neurology in the past. Chest pain, while somewhat chronic has been more persistent over the last few days to weeks. She is concerned as she was told she may have CHF based on an EKG finding.Patient does endorse nonspecific abdominal discomfort that is improving and was worse just prior to her nausea, vomiting, diarrhea that she expenses earlier this evening. - Related Data Home Medications Medication Instructions Recorded Confirmed DULoxetine HCL [Cymbalta] 30 mg PO DAILY 10/06/21 10/06/21 Previous Rx's Medication Instructions Recorded LORazepam [Ativan] 0.5 mg PO HS 3 Days #3 tab 08/17/22 Allergies Allergy/AdvReac Type Severity Reaction Status Date / Time No Known Allergies Allergy Verified 10/06/21 19:21 Review of Systems ROS Statement: Those systems with pertinent positive or pertinent negative responses have been documented in the HPI. Review of Systems: CONST: Denies fever EYES: Denies blurry vision ENT: Denies nasal congestion C/V: Endorses chest pain RESP: Denies shortness of breath GI: Endorses abdominal pain : Denies dysuria SKIN: Denies rash. MSK: Denies joint pain. NEURO: Denies headache ROS Other: All systems not noted in ROS Statement are negative. Past Medical History Past Medical History: Cancer Additional Past Medical History / Comment(s): Hodgkin's [id number]; in remission ; left subclavion blood clot 10/16/17 History of Any Multi-Drug Resistant Organisms: None Reported Past Surgical History: No Surgical Hx Reported Additional Past Surgical History / Comment(s): LEFT AXILLARY NODE BX; port inserted and removed; "fluid drained from aroung heart" Past Anesthesia/Blood Transfusion Reactions: No Reported Reaction Past Psychological History: No Psychological Hx Reported Smoking Status: Never smoker Past Alcohol Use History: None Reported Past Drug Use History: None Reported - Past Family History Mother Family Medical History: No Reported History Additional Family Medical History / Comment(s): 2 grandparents with cancer Father Family Medical History: No Reported History Brother(s) Family Medical History: No Reported History Daughter(s) Family Medical History: No Reported History Son(s) Family Medical History: No Reported History General Exam - General Exam Comments Initial Comments: General: Appears in no acute distress. HEAD: Normal with no signs of head trauma. EYES: PERRLA, EOMI, conjunctiva normal, no discharge. Pupils 3 mm and equal bilaterally. ENT: Hearing grossly intact, normal oropharynx. RESPIRATORY: Clear breath sounds bilaterally. No wheezes, rales, or rhonchi. C/V: Regular rate and rhythm. S1 and S2 auscultated, no edema, peripheral pulses 2+ and intact throughout ABD: Abd is soft, nontender, nondistended. unimpressive abdominal exam. EXT: Normal range of motion, no obvious deformity SKIN: No rashes or lesions observed on exposed skin. NEURO: Alert and oriented x 4. No focal sensory or strength deficits. Limitations: no limitations Course Vital Signs 08/17/22 08/17/22 03:52 05:43 Temperature 98.1 F 98.2 F Pulse Rate 92 76 Respiratory 16 12 Rate Blood Pressure 114/76 99/64 O2 Sat by Pulse 99 99 Oximetry Medical Decision Making - Medical Decision Making Was pt. sent in by a medical professional or institution (, PA, [employer], urgent care, hospital, or alf...) When possible be specific @ -No Did you speak to anyone other than the patient for history (EMS, parent, family, police, friend...)? What history was obtained from this source @ -No Did you review nursing and triage notes (agree or disagree)? Why? @ -I reviewed and agree with nursing and triage notes Were old charts reviewed (outside hosp., previous admission, EMS record, old EKG, old radiological studies, urgent care reports/EKG's, alf records)? Report findings @ -Old charts including EKGs were reviewed from September 2021 Differential Diagnosis (chest pain, altered mental status, abdominal pain women, abdominal pain men, vaginal bleeding, weakness, fever, dyspnea, syncope, headache, dizziness, GI bleed, back pain, seizure, CVA, palpatations, mental health, musculoskeletal)? @ -Differential Chest Pain: Stable Angina, Unstable Angina, STEMI, NSTEMI Aortic Dissection, Pneumothorax, Musculoskeletal, Esophageal Spasm GERD, Cholecystitis, Pancreatitis, Zoster, this is not meant to be an all-inclusive list. EKG interpreted by me (3pts min.). @ -As above X-rays interpreted by me (1pt min.). @ -Chest x-ray reveals no obvious acute cardio pulmonary process. CT interpreted by me (1pt min.). @ -None done U/S interpreted by me (1pt. min.). @ -None done What testing was considered but not performed or refused? (CT, X-rays, U/S, labs)? Why? @ -None What meds were considered but not given or refused? Why? @ -None Did you discuss the management of the patient with other professionals (professionals i.e. , PA, [employer], lab, RT, psych nurse, licensed master social worker, corporate lawyer, teacher, residential care officer, case management social worker)? Give summary @ -No Was smoking cessation discussed for >3mins.? @ -No Was critical care preformed (if so, how long)? @ -No Were there social determinants of health that impacted care today? How? (Homelessness, low income, unemployed, alcoholism, drug addiction, transportation, low edu. Level, literacy, decrease access to med. care, residential, rehab)? @ -No Was there de-escalation of care discussed even if they declined (Discuss DNR or withdrawal of care, Hospice)? DNR status @ -No What co-morbidities impacted this encounter? (DM, HTN, Smoking, COPD, CAD, Cancer, CVA, ARF, Chemo, Hep., AIDS, mental health diagnosis, sleep apnea, morbid obesity)? @ -None Was patient admitted / discharged? Hospital course, mention meds given and route, prescriptions, significant lab abnormalities, going to OR and other pertinent info. @ -Based on the patient's presentation and physical exam, she is having multiple complaints that sounds most like to me possible anxiety, however we will work her up for cardiopulmonary etiology at this time including screening d-dimer. She was in agreement this plan. She is concerned that she may have heart failure we will obtain screening BMP and chest x-ray for this. Vital signs within acceptable limits. She will be sent directly treated with an aspirin, as well as IV Toradol, Zofran, fluids. She'll be given a trial of a small dose of Ativan and see if she improves. She was in agreement this plan. EKG showed no signs of acute ischemia. Chest x-ray unremarkable. Labs are remarkable for an undetectable d-dimer, an undetectable troponin. Remainder of the labs are within acceptable limits. Urine is a contaminated catch. On reevaluation, she states she is somewhat improved following the Ativan administration. We discussed her workup. This is it has been multiple days since onset of her symptoms and these are somewhat chronic I do believe it is safer to be discharged home with follow-up with her PCP. She was in agreement with this plan. Heart scores low at 1-2. Strict return precautions were discussed. I will provide the patient with a prescription for Ativan. I instructed the patient to follow up with their PCP in the next 1-3 days. I explained that the patient should return to the emergency department if they experience any worsening symptoms. Strict return precautions were discussed with the patient. The patient expressed understanding of these instructions. I answered all questions that the patient had. The patient was discharged home in good condition with their prescriptions and follow up information. Undiagnosed new problem with uncertain prognosis? @ -No Drug Therapy requiring intensive monitoring for toxicity (Heparin, Nitro, Insulin, Cardizem)? @ -No Were any procedures done? @ -No Diagnosis/symptom? @ -Atypical chest pain Acute, or Chronic, or Acute on Chronic? @ -Acute Uncomplicated (without systemic symptoms) or Complicated (systemic symptoms)? @ - uncomplicated Side effects of treatment? @ -No Exacerbation, Progression, or Severe Exacerbation? @ -No Poses a threat to life or bodily function? How? (Chest pain, [place], [place], pneumonia, PE, COPD, DKA, ARF, appy, cholecystitis, CVA, Diverticulitis, Homicidal, Suicidal, threat to staff... and all critical care pts) @ -[No] Diagnosis/symptom? @ -Anxiety Acute, or Chronic, or Acute on Chronic? @ -Acute Uncomplicated (without systemic symptoms) or Complicated (systemic symptoms)? @ -Uncomplicated Side effects of treatment? @ -[none] Exacerbation, Progression, or Severe Exacerbation] @ -[no] Poses a threat to life or bodily function? @ -[no] - Lab Data Result diagrams: 08/17/22 04:49 08/17/22 04:49 Lab Results 08/17/22 08/17/22 08/17/22 Range/Units 04:49 04:49 04:49 WBC 4.6 (3.8-10.6) k/uL RBC 4.22 (3.80-5.40) m/uL Hgb 13.3 (11.4-16.0) gm/dL Hct 38.6 (34.0-46.0) % MCV 91.4 (80.0-100.0) fL MCH 31.5 (25.0-35.0) pg MCHC 34.5 (31.0-37.0) g/dL RDW 12.7 (11.5-15.5) % Plt Count 193 (150-450) k/uL MPV 8.3 Neutrophils % 61 % Lymphocytes % 29 % Monocytes % 5 % Eosinophils % 2 % Basophils % 1 % Neutrophils # 2.8 (1.3-7.7) k/uL Lymphocytes # 1.3 (1.0-4.8) k/uL Monocytes # 0.2 (0-1.0) k/uL Eosinophils # 0.1 (0-0.7) k/uL Basophils # 0.0 (0-0.2) k/uL PT 10.2 (9.0-12.0) sec INR 1.0 (<1.2) APTT 25.4 (22.0-30.0) sec D-Dimer <0.17 (<0.60) mg/L FEU Sodium (137-145) mmol/L Potassium (3.5-5.1) mmol/L Chloride (98-107) mmol/L Carbon Dioxide (22-30) mmol/L Anion Gap mmol/L BUN (7-17) mg/dL Creatinine (0.52-1.04) mg/dL Est GFR (CKD-EPI)AfAm (>60 ml/min/1.73 sqM) Est GFR (CKD-EPI)NonAf (>60 ml/min/1.73 sqM) Glucose (74-99) mg/dL Calcium (8.4-10.2) mg/dL Magnesium (1.6-2.3) mg/dL Total Bilirubin (0.2-1.3) mg/dL AST (14-36) U/L ALT (4-34) U/L Alkaline Phosphatase (38-126) U/L Troponin I (0.000-0.034) ng/mL NT-Pro-B Natriuret Pep pg/mL Total Protein (6.3-8.2) g/dL Albumin (3.5-5.0) g/dL Lipase (23-300) U/L HCG, Qual Urine Color Yellow Urine Appearance Cloudy H (Clear) Urine pH 6.0 (5.0-8.0) Ur Specific [place] 1.024 (1.001-1.035) Urine Protein Trace H (Negative) Urine Glucose (UA) Negative (Negative) Urine Ketones Trace H (Negative) Urine Blood Trace H (Negative) Urine Nitrite Negative (Negative) Urine Bilirubin Negative (Negative) Urine Urobilinogen <2.0 (<2.0) mg/dL Ur Leukocyte Esterase Negative (Negative) Urine RBC 1 (0-5) /hpf Urine WBC 3 (0-5) /hpf Ur Squamous Epith Cells 11 H (0-4) /hpf Calcium Oxalate Crystal Occasional H (None) /hpf Urine Bacteria Rare H (None) /hpf Hyaline Casts 1 (0-2) /lpf Urine Mucus Occasional H (None) /hpf Influenza Type A (PCR) (Not Detectd) Influenza Type B (PCR) (Not Detectd) RSV (PCR) (Not Detectd) SARS-CoV-2 (PCR) (Not Detectd) 08/17/22 08/17/22 08/17/22 Range/Units 04:49 04:49 04:49 WBC (3.8-10.6) k/uL RBC (3.80-5.40) m/uL Hgb (11.4-16.0) gm/dL Hct (34.0-46.0) % MCV (80.0-100.0) fL MCH (25.0-35.0) pg MCHC (31.0-37.0) g/dL RDW (11.5-15.5) % Plt Count (150-450) k/uL MPV Neutrophils % % Lymphocytes % % Monocytes % % Eosinophils % % Basophils % % Neutrophils # (1.3-7.7) k/uL Lymphocytes # (1.0-4.8) k/uL Monocytes # (0-1.0) k/uL Eosinophils # (0-0.7) k/uL Basophils # (0-0.2) k/uL PT (9.0-12.0) sec INR (<1.2) APTT (22.0-30.0) sec D-Dimer (<0.60) mg/L FEU Sodium 139 (137-145) mmol/L Potassium 3.8 (3.5-5.1) mmol/L Chloride 104 (98-107) mmol/L Carbon Dioxide 29 (22-30) mmol/L Anion Gap 6 mmol/L BUN 12 (7-17) mg/dL Creatinine 0.56 (0.52-1.04) mg/dL Est GFR (CKD-EPI)AfAm >90 (>60 ml/min/1.73 sqM) Est GFR (CKD-EPI)NonAf >90 (>60 ml/min/1.73 sqM) Glucose 112 H (74-99) mg/dL Calcium 8.6 (8.4-10.2) mg/dL Magnesium 2.2 (1.6-2.3) mg/dL Total Bilirubin 0.5 (0.2-1.3) mg/dL AST 20 (14-36) U/L ALT 16 (4-34) U/L Alkaline Phosphatase 51 (38-126) U/L Troponin I <0.012 (0.000-0.034) ng/mL NT-Pro-B Natriuret Pep 170 pg/mL Total Protein 7.0 (6.3-8.2) g/dL Albumin 4.4 (3.5-5.0) g/dL Lipase 123 (23-300) U/L HCG, Qual Not Detected Urine Color Urine Appearance (Clear) Urine pH (5.0-8.0) Ur Specific [place] (1.001-1.035) Urine Protein (Negative) Urine Glucose (UA) (Negative) Urine Ketones (Negative) Urine Blood (Negative) Urine Nitrite (Negative) Urine Bilirubin (Negative) Urine Urobilinogen (<2.0) mg/dL Ur Leukocyte Esterase (Negative) Urine RBC (0-5) /hpf Urine WBC (0-5) /hpf Ur Squamous Epith Cells (0-4) /hpf Calcium Oxalate Crystal (None) /hpf Urine Bacteria (None) /hpf Hyaline Casts (0-2) /lpf Urine Mucus (None) /hpf Influenza Type A (PCR) (Not Detectd) Influenza Type B (PCR) (Not Detectd) RSV (PCR) (Not Detectd) SARS-CoV-2 (PCR) (Not Detectd) 08/17/22 Range/Units 04:49 WBC (3.8-10.6) k/uL RBC (3.80-5.40) m/uL Hgb (11.4-16.0) gm/dL Hct (34.0-46.0) % MCV (80.0-100.0) fL MCH (25.0-35.0) pg MCHC (31.0-37.0) g/dL RDW (11.5-15.5) % Plt Count (150-450) k/uL MPV Neutrophils % % Lymphocytes % % Monocytes % % Eosinophils % % Basophils % % Neutrophils # (1.3-7.7) k/uL Lymphocytes # (1.0-4.8) k/uL Monocytes # (0-1.0) k/uL Eosinophils # (0-0.7) k/uL Basophils # (0-0.2) k/uL PT (9.0-12.0) sec INR (<1.2) APTT (22.0-30.0) sec D-Dimer (<0.60) mg/L FEU Sodium (137-145) mmol/L Potassium (3.5-5.1) mmol/L Chloride (98-107) mmol/L Carbon Dioxide (22-30) mmol/L Anion Gap mmol/L BUN (7-17) mg/dL Creatinine (0.52-1.04) mg/dL Est GFR (CKD-EPI)AfAm (>60 ml/min/1.73 sqM) Est GFR (CKD-EPI)NonAf (>60 ml/min/1.73 sqM) Glucose (74-99) mg/dL Calcium (8.4-10.2) mg/dL Magnesium (1.6-2.3) mg/dL Total Bilirubin (0.2-1.3) mg/dL AST (14-36) U/L ALT (4-34) U/L Alkaline Phosphatase (38-126) U/L Troponin I (0.000-0.034) ng/mL NT-Pro-B Natriuret Pep pg/mL Total Protein (6.3-8.2) g/dL Albumin (3.5-5.0) g/dL Lipase (23-300) U/L HCG, Qual Urine Color Urine Appearance (Clear) Urine pH (5.0-8.0) Ur Specific [place] (1.001-1.035) Urine Protein (Negative) Urine Glucose (UA) (Negative) Urine Ketones (Negative) Urine Blood (Negative) Urine Nitrite (Negative) Urine Bilirubin (Negative) Urine Urobilinogen (<2.0) mg/dL Ur Leukocyte Esterase (Negative) Urine RBC (0-5) /hpf Urine WBC (0-5) /hpf Ur Squamous Epith Cells (0-4) /hpf Calcium Oxalate Crystal (None) /hpf Urine Bacteria (None) /hpf Hyaline Casts (0-2) /lpf Urine Mucus (None) /hpf Influenza Type A (PCR) Not Detected (Not Detectd) Influenza Type B (PCR) Not Detected (Not Detectd) RSV (PCR) Not Detected (Not Detectd) SARS-CoV-2 (PCR) Not Detected (Not Detectd) - EKG Data -: EKG Interpreted by Me EKG Comments: 12-lead Electrocardiogram Interpretation Note EKG was reviewed and interpreted by myself. 12-lead ECG performed at [place] [id number] is interpreted by me as revealing normal sinus rhythm at a rate of 78 beats per minute. Right axis deviation, MN interval is 109 ms, QRS duration is 100 ms, QTc is 431 ms. Patient does have what appears be a chronic and complete right bundle branch block.. There were no ST or T wave abnormalities to suggest myocardial ischemia or injury. R wave progression across the precordium was satisfactory. By my interpretation this EKG is non-diagnostic for acute ischemia. When compared with Prior EKGs from October 2017, as well as September 2021, no significant change. Disposition Clinical Impression: Chest pain, atypical, Anxiety Disposition: HOME SELF-CARE Condition: Good Instructions (If sedation given, give patient instructions): Chest Pain (ED), Anxiety (ED) Prescriptions: LORazepam [Ativan] 0.5 mg PO HS 3 Days #3 tab Is patient prescribed a controlled substance at d/c from ED?: Yes When asked, does pt state using other controlled substances?: No Referrals: Rodger Arce MD [Primary Care Provider] - 1-2 days Time of Disposition: 06:25
[2022-08-17 07:32] LABS: Appearance,Urine Cloudy (Clear); Bilirubin,Urine Negative (Negative); Blood,Urine Trace (Negative); Calcium Oxalate Crystals,Urine Occasional /hpf; Color,Urine Yellow; Glucose,Urine (UA) Negative (Negative); Ketones,Urine Trace (Negative); Leukocyte Esterase,Urine Negative (Negative); Nitrite,Urine Negative (Negative); Protein,Urine Trace (Negative); Specific Gravity,Urine 1.024 (1.001-1.035); Urobilinogen,Urine <2.0 mg/dL (<2.0)
== END 2022-08-17 06:58 | disposition home or self-care (01) ==
LOC: EC 03:50
DX: R07.89 Other chest pain (principal); F41.9 Anxiety disorder, unspecified; Z20.822 Contact with and (suspected) exposure to COVID-19
CPT/HCPCS: 36415; 93005; 85379; 83880; 80053; 83690; 83735; 84484; 85025; 85610; 85730; 81001; 84703; 87636; 71046; 99285; 96374; 96375; 96361; J2405; J1885

== ENCOUNTER → 2022-09-14 | Outpatient (CLI) | payer OTHER ==
--- NOTE | 2022-09-14 09:05 | CT ---
EXAMINATION TYPE: CT chest w con DATE OF EXAM: 09/14/2022 COMPARISON: 02/17/2019 HISTORY: Chest pressure. Hx of fluid drained from around heart in 2017. Hx of Hodgkin lymphoma. CT DLP: 132.4 mGycm Automated exposure control for dose reduction was used. CONTRAST: CT scan of the chest is performed with IV Contrast, patient injected with 100cc mL of Isovue 300. FINDINGS: LUNGS: The lungs are grossly clear, there is no concerning parenchymal mass or nodule identified. T here is no pleural effusion or pneumothorax seen. The tracheobronchial tree is patent. MEDIASTINUM: Again noted is increased soft tissue within the prevascular space. Increased soft tissue persists within the anterior mediastinum also unchanged. The findings are felt to reflect treated ne oplasm. No hilar adenopathy is appreciated. UPPER ABDOMEN: No significant abnormality appreciated. OTHER: No additional significant abnormality is seen. There is an apparent shunt catheter noted. IMPRESSION: 1. Posttreatment changes superior mediastinum with residual soft tissue unchanged from prior study. N o evidence for new soft tissue or increasing soft tissue to suggest recurrent disease.
== END | disposition home or self-care (01) ==
LOC: RADCTMAIN 08:22
PROVIDERS: ATTEND Internal Medicine Hematology & Oncology
DX: C81.18 Nodular sclerosis Hodgkin lymphoma, lymph nodes of multiple sites (principal)
CPT/HCPCS: 71260; Q9967

== ENCOUNTER 2023-10-19 13:39 | Emergency (ER) | payer OTHER ==
--- NOTE | 2023-10-19 13:58 | ED ---
URI HPI - General Source: patient, RN notes reviewed Mode of arrival: ambulatory Limitations: no limitations - History of Present Illness MD Complaint: cough <Ara Cuenca - Last Filed: 10/19/23 13:56> - General Source: RN notes reviewed, old records reviewed Mode of arrival: ambulatory Limitations: no limitations - History of Present Illness MD Complaint: cough, nasal congestion -: days(s) Severity: mild Severity scale (1-10): 1 Consistency: constant Improves With: nothing Worsens With: nothing Associated Symptoms: cough Treatments Prior to Arrival: none <Wolf Chau - Last Filed: 11/03/23 17:00> - General Chief Complaint: Upper Respiratory Infection Stated Complaint: Chest Pain Time Seen by Provider: 10/19/23 13:56 - History of Present Illness Initial Comments: Quick Note: This is a 28-year-old female who presents to the emergency department for coughing and congestion. States that it started 4 days ago. Cough is described as productive with thick mucus. Yesterday she started to develop chest pain that she attributes to all of the coughing. Her daughter has been sick with similar symptoms. Denies any fevers or chills. (Ara Cuenca) This is a 28-year-old female to the ER for evaluation of cough congestion upper respiratory symptoms nasal congestion and not feeling well. Symptoms for 3 to 4 days with increased cough. No travel history no sick contacts no other complaints no medical history takes no medications (Wolf Chau) - Related Data Home Medications Medication Instructions Recorded Confirmed DULoxetine HCL [Cymbalta] 30 mg PO DAILY 10/06/21 10/06/21 Previous Rx's Medication Instructions Recorded LORazepam [Ativan] 0.5 mg PO HS 3 Days #3 tab 08/17/22 Azithromycin [Zithromax] 500 mg PO DAILY 5 Days #1 tab 10/19/23 Benzonatate [Tessalon Perles] 100 mg PO TID PRN #20 capsule 10/19/23 Loratadine-Pseudoeph 10-240 mg 1 tab PO DAILY #14 tab 10/19/23 [Claritin-D 24 Hour] Allergies Allergy/AdvReac Type Severity Reaction Status Date / Time No Known Allergies Allergy Verified 10/06/21 19:21 Review of Systems ROS Other: All systems not noted in ROS Statement are negative. <Ara Cuenca - Last Filed: 10/19/23 13:56> ROS Other: All systems not noted in ROS Statement are negative. <Wolf Chau - Last Filed: 11/03/23 17:00> ROS Statement: Those systems with pertinent positive or pertinent negative responses have been documented in the HPI. Past Medical History Past Medical History: Cancer Additional Past Medical History / Comment(s): Hodgkin's [id number]; in remission ; left subclavion blood clot 10/16/17 History of Any Multi-Drug Resistant Organisms: None Reported Past Surgical History: No Surgical Hx Reported Additional Past Surgical History / Comment(s): LEFT AXILLARY NODE BX; port inserted and removed; "fluid drained from aroung heart" Past Anesthesia/Blood Transfusion Reactions: No Reported Reaction Past Psychological History: No Psychological Hx Reported Smoking Status: Never smoker Past Alcohol Use History: None Reported Past Drug Use History: None Reported - Past Family History Mother Family Medical History: No Reported History Additional Family Medical History / Comment(s): 2 grandparents with cancer Father Family Medical History: No Reported History Brother(s) Family Medical History: No Reported History Daughter(s) Family Medical History: No Reported History Son(s) Family Medical History: No Reported History <Ara Cuenca - Last Filed: 10/19/23 13:56> General Exam Limitations: no limitations <Ara Cuenca - Last Filed: 10/19/23 13:56> General appearance: alert, in no apparent distress Head exam: Present: atraumatic, normocephalic, normal inspection Eye exam: Present: normal appearance, PERRL, EOMI. Absent: scleral icterus, conjunctival injection, periorbital swelling ENT exam: Present: normal exam, mucous membranes moist Neck exam: Present: normal inspection. Absent: tenderness, meningismus, lymphadenopathy Respiratory exam: Present: normal lung sounds bilaterally. Absent: respiratory distress, wheezes, rales, rhonchi, stridor Cardiovascular Exam: Present: regular rate, normal rhythm, normal heart sounds. Absent: systolic murmur, diastolic murmur, rubs, gallop, clicks GI/Abdominal exam: Present: soft, normal bowel sounds. Absent: distended, tenderness, guarding, rebound, rigid Extremities exam: Present: normal inspection, full ROM, normal capillary refill. Absent: tenderness, pedal edema, joint swelling, calf tenderness Back exam: Present: normal inspection Neurological exam: Present: alert, oriented X3, CN II-XII intact Psychiatric exam: Present: normal affect, normal mood Skin exam: Present: warm, dry, intact, normal color. Absent: rash <Wolf Chau - Cordell Filed: 11/03/23 17:00> - General Exam Comments Initial Comments: Visual Physical Exam Vital signs reviewed General: Well-appearing, nontoxic, no acute distress. Head: Normocephalic, atraumatic Eyes: PERRLA, EOMI ENT: Airway patent Chest: Nonlabored breathing Skin: No visual rash, normal skin tone Neuro: Alert and oriented 3 Musculoskeletal: No gross abnormalities (Ara Cuenca) Course <Wolf Chau Cordell Filed: 11/03/23 17:00> Vital Signs 10/19/23 10/19/23 10/19/23 13:53 15:28 16:46 Temperature 98.3 F 98.2 F Pulse Rate 94 92 87 Respiratory 18 14 14 Rate Blood Pressure 105/70 111/73 120/78 O2 Sat by Pulse 99 95 100 Oximetry - Reevaluation(s) Reevaluation #1: 10/19/23 16:04 Medical records reviewed (Wolf Chau) Reevaluation #2: 10/19/23 16:04 Patient symptoms unchanged (Wolf Chau) Reevaluation #3: 10/19/23 16:04 Patient informed of results questions answered (Wolf Cahu) Reevaluation #4: Was pt. sent in by a medical professional or institution (, PA, CENTRAL CONTROL ROOM OPERATOR, urgent care, hospital, or prison...) When possible be specific @ -no Did you speak to anyone other than the patient for history (EMS, parent, family, police, friend...)? What history was obtained from this source @ -no Did you review nursing and triage notes (agree or disagree)? Why? @ -agree Are old charts reviewed (outside hosp., previous admission, EMS record, old EKG, old radiological studies, urgent care reports/EKG's, prison records)? Report findings @ -yes Differential Diagnosis (chest pain, altered mental status, abdominal pain women, abdominal pain men, vaginal bleeding, weakness, fever, dyspnea, syncope, headache, dizziness, GI bleed, back pain, seizure, CVA, palpatations, mental health, musculoskeletal)? @ -prior EKG interpreted by me (3pts min.). @ -yes X-rays interpreted by me (1pt min.). @ -yes negative for acute disease CT interpreted by me (1pt min.). @ -no U/S interpreted by me (1pt. min.). @ -no What testing was considered but not performed or refused? (CT, X-rays, U/S, labs)? Why? @ -none What meds were considered but not given or refused? Why? @ -none Did you discuss the management of the patient with other professionals (professionals i.e. , PA, CENTRAL CONTROL ROOM OPERATOR, lab, RT, psych nurse, director of social work, curtains and draperies salesperson, teacher, audit officer, welfare case worker)? Give summary @ -no Was smoking cessation discussed for >3mins.? @ -no Were there social determinants of health that impacted care today? How? (Homelessness, low income, unemployed, alcoholism, drug addiction, transportation, low edu. Level, literacy, decrease access to med. care, group home, rehab)? @ -none Was there de-escalation of care discussed even if they declined (Discuss DNR or withdrawal of care, Hospice)? DNR status @ -no What co-morbidities impacted this encounter? (DM, HTN, Smoking, COPD, CAD, Cancer, CVA, ARF, Chemo, Hep., AIDS, mental health diagnosis, sleep apnea, morbid obesity)? @ -none Was patient admitted / discharged? Hospital course, mention meds given and route, prescriptions, significant lab abnormalities, going to OR and other pertinent info. @ - 28 female to the ER for evaluation patient presents today for cough congestion abdominal pain chest pain weakness. Patient has findings of pneumonia and can be discharged home Discharge Was critical care preformed (if so, how long)? @ -no Undiagnosed new problem with uncertain prognosis? @ -no Drug Therapy requiring intensive monitoring for toxicity (Heparin, Nitro, Insulin, Cardizem)? @ -no Were any procedures done? @ -no Diagnosis/symptom? @ -Chest pain abdominal pain weakness Acute, or Chronic, or Acute on Chronic? @ -Acute Uncomplicated (without systemic symptoms) or Complicated (systemic symptoms)? @ -Complicated Side effects of treatment? @ -no Exacerbation, Progression, or Severe Exacerbation? @ -exacerbation Poses a threat to life or bodily function? How? (Chest pain, [place], [place], pneumonia, PE, COPD, DKA, ARF, appy, cholecystitis, CVA, Diverticulitis, Homicidal, Suicidal, threat to staff... and all critical care pts) @ -yes with chest pain (Wolf Chau) Reevaluation #5: Differential Dyspnea: Coronary syndrome, arrhythmia, tamponade, asthma, COPD, pulmonary embolism, pneumonia, pneumothorax, pulmonary effusion, anaphylaxis, diabetic ketoacidosis, flailed chest, pulmonary contusion, diaphragmatic rupture, anemia, neuromuscular, this is not meant to be an all-inclusive list. Differential Chest Pain: Stable Angina, Unstable Angina, STEMI, NSTEMI Aortic Dissection, Pneumothorax, Musculoskeletal, Esophageal Spasm GERD, Cholecystitis, Pancreatitis, Zoster, this is not meant to be an all-inclusive list. (Wolf Chau) Medical Decision Making <Ara Cuenca - Last Filed: 10/19/23 13:56> - EKG Data -: EKG Interpreted by Me (EKG is sinus 86 WA 132 QRS 78 QTc 417) - Radiology Data Radiology results: report reviewed (X-rays negative for acute disease), image reviewed <Wolf Chau - Last Filed: 11/03/23 17:00> - Medical Decision Making I performed the QuickNote portion of this chart. Signed Ara Cuenca PA-C. (Ara Cuenca) 28 female to the ER for evaluation patient presents today for weakness abdominal pain. Patient has findings of pneumonia and can be discharged home (Wolf Chau) - Lab Data Lab Results 10/19/23 Range/Units 14:18 Influenza Type A (PCR) Not Detected (Not Detectd) Influenza Type B (PCR) Not Detected (Not Detectd) RSV (PCR) Not Detected (Not Detectd) SARS-CoV-2 (PCR) Not Detected (Not Detectd) Disposition <Ara Cuenca - Last Filed: 10/19/23 13:56> Is patient prescribed a controlled substance at d/c from ED?: No Time of Disposition: 16:00 <Wolf Chau - Last Filed: 11/03/23 17:00> Clinical Impression: Walking pneumonia, Tracheobronchitis, Weakness, Chest pain Disposition: HOME SELF-CARE Condition: Good Instructions (If sedation given, give patient instructions): Bacterial Pneumonia (ED) Prescriptions: Loratadine-Pseudoeph 10-240 mg [Claritin-D 24 Hour] 1 tab PO DAILY #14 tab Benzonatate [Tessalon Perles] 100 mg PO TID PRN #20 capsule PRN Reason: Cough Azithromycin [Zithromax] 500 mg PO DAILY 5 Days #1 tab Referrals: Rodger Arce MD [Primary Care Provider] - 1-2 days
--- NOTE | 2023-10-19 14:50 | XR ---
EXAMINATION TYPE: XR chest 2V DATE OF EXAM: 10/19/2023 2:26 PM CLINICAL INDICATION:Female, 28 years old with history of Cough; MERGED WITH [facility] COMPARISON: 08/17/2022 TECHNIQUE: XR chest 2V. Frontal and lateral views of the chest.. FINDINGS: Lines/Tubes/Devices: No indwelling lines are seen. Necklace is present. Heart/mediastinum: Heart size is normal. Mediastinum appears normal. Pulmonary vascularity: Not increased, Lungs/Pleura: There is no evidence of pleural effusion, focal consolidation, or pneumothorax. Musculoskeletal: No acute osseous abnormality demonstrated in the limits of the exam. Other findings: None. IMPRESSION: No acute cardiopulmonary abnormality.
[2023-10-19 16:03] VITALS: RESP 14; TEMP 98.2
[2023-10-19] MEDS: AZITHROMYCIN 500 MG TAB PO STA (16:40)
[2023-10-19] MEDS: BENZONATATE 100 MG CAP PO STA (16:41)
[2023-10-19] MEDS: LORATADINE-PSEUDOEPH 5-120 MG 1 EACH TAB.ER.12H PO STA (16:41)
[2023-10-19 16:53] VITALS: BP 120/78; PULSE 87
== END 2023-10-19 16:46 | disposition home or self-care (01) ==
LOC: EC 13:39
DX: J18.9 Pneumonia, unspecified organism (principal); J40 Bronchitis, not specified as acute or chronic; R53.1 Weakness; R10.9 Unspecified abdominal pain
CPT/HCPCS: 71046; 87636; 93005; 99285